=== PATIENT | female | born 1985 | race Caucasian/White ===

== ENCOUNTER 2016-03-04 09:46 | Emergency (ER) | payer OTHER ==
[~2016-03-04 09:46] MED LIST: /MOXI40TA OR; ACET65TA OR; ALBUTEROL INH; BUPR150T3 PO; CLAR10CA3 PO; CLIN1CAP5 PO; NARCO PO; OMEP20TA7 OR; PRED50TA OR; RANI15TA PO; SLOWTAB OR; SUCR1TA PO
[2016-03-04] MEDS ORDERED: ONDANSETRON 4MG/2ML VIAL (J2405) As Ordered ONE (10:33)
[2016-03-04 10:47] LABS: MEAN CORPUSCULAR HEMOGLOBIN 32.3 pg (27.0-33.0); MEAN CORPUSCULAR HGB CONC 35.1 g/dl (32.0-36.5); WHITE BLOOD COUNT 9.8 K/mm3 (4.0-10.0)
[2016-03-04 12:13] LABS: ALBUMIN 3.9 GM/DL (3.2-5.2); ALBUMIN/GLOBULIN RATIO 1.34 (1.00-1.93); ALKALINE PHOSPHATASE 63 U/L (45-117); ALT/SGPT 14 U/L (12-78); ANION GAP 10 MEQ/L (8-16); AST/SGOT 9 U/L (15-37); BILIRUBIN,DIRECT 0.2 MG/DL (0.0-0.2); BILIRUBIN,TOTAL 0.6 MG/DL (0.2-1.0); BLOOD UREA NITROGEN 6 MG/DL (7-18); CALCIUM LEVEL 8.9 MG/DL (8.5-10.1); CARBON DIOXIDE LEVEL 24 MEQ/L (21-32); CHLORIDE LEVEL 109 MEQ/L (98-107); CREATININE FOR GFR 0.66 MG/DL (0.55-1.02); GLOMERULAR FILTRATION RATE > 60.0 (>60); GLUCOSE, FASTING 82 MG/DL (70-105); HCG, SERUM QUANTITATIVE 18240 MIU/ML; POTASSIUM SERUM 3.9 MEQ/L (3.5-5.1); SODIUM LEVEL 143 MEQ/L (136-145); TOTAL PROTEIN 6.8 GM/DL (6.4-8.2)
--- NOTE | 2016-03-04 12:46 | EDDOCDS ---
Nurse's Notes [facility] Name: Samra Sadler Age: 30 yrs Sex: Female : 1985 Arrival Date: 03/04/2016 Time: 09:46 Bed TR3 Private MD: Cyn Medina. Diagnosis: related conditions, unspecified;Vomiting of , unspecified Presentation: 03/04 09:50 Presenting complaint: Patient states: pt c/o n/v/d, onset yesterday morning. states "I ead can't keep anything down.". also reports she is , unsure how far along. reports LMP "last week of December." first OB is for 03/13/16. Presenting complaint: Presenting complaint:. Adult Sepsis Screening: The patient does not have new or worsening altered mentation. Patient's respiratory rate is less than 22. Systolic blood pressure is greater than 100. Patient has a qSOFA score of 0- Negative Sepsis Screen. 09:50 Acuity: JEROMY Level 3 ead 09:50 Suicide/Homicide risk assessment- the patient denies having any suicidal and/or ead homicidal ideations and does not present with any other emotional, behavioral or mental health complaints. Status: Patient is not a equipment service technician or dependent. Transition of care: patient was not received from another setting of care. 09:50 Method Of Arrival: Walkin/Carried/Asstd ead Triage Assessment: 09:52 General: Appears in no apparent distress, Behavior is appropriate for age, cooperative. ead Pain: Denies pain. HIV screening NA for this visit Offered previously. GI: Reports diarrhea, nausea, vomiting. : Denies vaginal bleeding. Derm: Skin is pink, warm & dry. 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 none - PMHx: Asthma; MRSA; - PSHx: Cholecystectomy; - Social history: No barriers to communication noted, The patient speaks fluent Armenian, Speaks appropriately for age, Smoking status: Patient uses tobacco products, current every day smoker. - Family history: Not pertinent. - : The pt / caregiver states he / she is not on anticoagulants. Home medication list is obtained from the patient. - Exposure Risk Screening:: None identified. Screenin:26 Screening information is obtained from the patient. Fall risk: No risks identified. k Assistance ADL's: requires no assistance with activities of daily living. Abuse/DV Screen: The patient / caregiver reports he/she is: not in a situation that causes fear, pain or injury. Nutritional screening: No deficits noted. Advance Directives: Currently, there is no health care proxy. There is no active DNR order. There is no living will. There is no Power of Co Pilot. Advance directive information has not previously been placed in an [facility] medical record. home support is adequate. Assessment: 11:07 General: Appears in no apparent distress. GI: Abdomen is flat, non- distended Bowel jmk sounds present X 4 quads. Abd is soft and non tender Reports nausea. 11:26 General: states nausea has lessened. No vomiting since arrival.. GI: Reports. k 12:44 General: Appears po taken and retained. no vomiting since arrrival. [facility] Vital Signs: 09:48 BP 116 / 68; Pulse 69; Resp 18 S; Temp 98.2(O); Pulse Ox 100% on R/A; Weight 70.31 kg gr2 (R); Height 5 ft. 1 in. (154.94 cm) (R); Pain 4/10; 12:24 BP 107 / 58; Pulse 68; Resp 18; Temp 97.0(O); Pulse Ox 97% on R/A; Pain 0/10; dem1 09:48 Body Mass Index 29.29 (70.31 kg, 154.94 cm) 2 Vitals: 09:48 Log In Time: March 04, 2016 at 09:48. gr2 ED Course: 09:48 Patient visited by Abby Ospina. gr2 09:48 Cyn Medina. is Private Physician. gr2 09:48 Patient moved to Waiting gr2 09:49 Patient visited by Abby Ospina. gr2 09:49 Patient moved to Pre RCE gr2 09:52 Triage Initiated ead 10:19 Patient moved to Triage 2 ead 10:20 [facility] ke 10:20 Patient visited by Peng Bunn FNP. ke 10:20 Patient visited by Peng Bunn FNP. ke 10:31 Susan Medina, RN is Primary Nurse. ead 10:31 Patient moved to I4 / ead 10:42 Liver Profile Sent. jmk 10:42 Lipase Sent. jmk 10:43 Type & Screen Sent. jmk 10:43 BMP Sent. jmk 10:43 CBC Sent. jmk 10:43 Hcg, Serum Quantitative Sent. jmk 10:50 [facility] Payment Agreement was scanned into [email or web address] and attached to record. lg 10:51 Patient visited by Peng Bunn FNP. ke 11:09 Inserted saline lock: 20 gauge in left. jmk 11:23 Patient visited by Peng Bunn FNP. ke 11:26 The patient / caregiver is instructed regarding the plan of care and ED course. jmk 12:04 Patient visited by Peng Bunn FNP. ke 12:19 Aura Platt CNM is Referral Physician. ke 12:24 Patient visited by Viji Rizzo. dem1 12:35 Patient moved to [facility] rs6 12:43 Discontinued lock intact, bleeding controlled, pressure dressing applied, No jmk redness/swelling at site. No procedures done that require assistance. Administered Medications: 10:43 Drug: NS 0.9% 1000 ml Route: IV; Rate: bolus; Site: left antecubital; jmk 10:43 Drug: Ondansetron 4 mg [ondansetron HCl 2 mg/mL intravenous solution (2 mL)] Route: dls IVP; Site: left antecubital; Order Results: Lab Order: Hcg, Serum Quantitative; SPEC'M 03/04/16 11:25 Test: HCG, SERUM QUANTITATIVE; Value: 22030; Units: MIU/ML; Status: F Test Note: ; GESTATIONAL AGE APPROXIMATE HCG RANGE (MIU/ML) 0.2-1 WEEK 5-50 1-2 WEEKS 50-500 2-3 WEEKS 100-5,000 3-4 WEEKS 500-10,000 4-5 WEEKS 1,000-50,000 5-6 WEEKS 10,000-100,000 6-8 WEEKS 15,000-200,000 2-3 MONTHS 10,000-100,000 NON FEMALES LESS THAN 3.0 Patient samples may contain human heterophilic antibodies that could react with immunoassays to give falsely elevated or depressed results. This assay has been designed to minimize interference from heterophilic antibodies. Elevated hCG levels have also been associated with trophoblastic disease and nontrophoblastic neoplasms. The possibility of having these diseases should be considered before a diagnosis of is made. This test is not intended for use as a surrogate marker for aiding in the diagnosis or monitoring the treatment of cancer patients. Siem[employer] methodology. Lab Order: CBC; SPEC'M 03/04/16 10:38 Test: WHITE BLOOD COUNT; Value: 9.8; Range: 4.0-10.0; Units: K/mm3; Status: F Test: RED BLOOD COUNT; Value: 5.03; Range: 4.00-5.40; Units: M/mm3; Status: F Test: HEMOGLOBIN; Value: 16.3; Range: 12.0-16.0; Abnormal: Above high normal; Units: g/dl; Status: F Test: HEMATOCRIT; Value: 46.3; Range: 36.0-47.0; Units: %; Status: F Test: MEAN CORPUSCULAR VOLUME; Value: 92.0; Range: 80.0-96.0; Units: fl; Status: F Test: MEAN CORPUSCULAR HEMOGLOBIN; Value: 32.3; Range: 27.0-33.0; Units: pg; Status: F Test: MEAN CORPUSCULAR HGB CONC; Value: 35.1; Range: 32.0-36.5; Units: g/dl; Status: F Test: RED CELL DISTRIBUTION WIDTH; Value: 12.0; Range: 11.5-14.5; Units: %; Status: F Test: PLATELET COUNT, AUTOMATED; Value: 241; Range: 150-450; Units: k/mm3; Status: F Lab Order: BMP; SPEC'M 03/04/16 11:25 Test: GLUCOSE, FASTING; Value: 82; Range: 70-105; Units: MG/DL; Status: F Test: BLOOD UREA NITROGEN; Value: 6; Range: 7-18; Abnormal: Below low normal; Units: MG/DL; Status: F Test: CREATININE FOR GFR; Value: 0.66; Range: 0.55-1.02; Units: MG/DL; Status: F Test: GLOMERULAR FILTRATION RATE; Value: > 60.0; Range: >60; Status: F Test: SODIUM LEVEL; Value: 143; Range: 136-145; Units: MEQ/L; Status: F Test: POTASSIUM SERUM; Value: 3.9; Range: 3.5-5.1; Units: MEQ/L; Status: F Test: CHLORIDE LEVEL; Value: 109; Range: 98-107; Abnormal: Above high normal; Units: MEQ/L; Status: F Test: CARBON DIOXIDE LEVEL; Value: 24; Range: 21-32; Units: MEQ/L; Status: F Test: ANION GAP; Value: 10; Range: 8-16; Units: MEQ/L; Status: F Test: CALCIUM LEVEL; Value: 8.9; Range: 8.5-10.1; Units: MG/DL; Status: F Test Note: ; Units are mL/min/1.73 m2 Chronic Kidney Disease Staging per NKF: Stage I & II GFR >=60 Normal to Mildly Decreased Stage III GFR 30-59 Moderately Decreased Stage IV GFR 15-29 Severely Decreased Stage V GFR <15 Very Little GFR Left ESRD GFR <15 on PRIMER INSPECTOR Lab Order: Type & Screen; SPEC' 03/04/16 11:25 Test: BLOOD TYPE; Value: O NEG; Status: F Test: AB SCREEN (INDIRECT NATALY)GEL; Value: NEGATIVE; Status: F Lab Order: Lipase; SPEC' 03/04/16 11:25 Test: LIPASE; Value: 125; Range: 73-393; Units: U/L; Status: F Lab Order: Liver Profile; SPEC' 03/04/16 11:25 Test: AST/SGOT; Value: 9; Range: 15-37; Abnormal: Below low normal; Units: U/L; Status: F Test: ALT/SGPT; Value: 14; Range: 12-78; Units: U/L; Status: F Test: ALKALINE PHOSPHATASE; Value: 63; Range: 45-117; Units: U/L; Status: F Test: BILIRUBIN,TOTAL; Value: 0.6; Range: 0.2-1.0; Units: MG/DL; Status: F Test: BILIRUBIN,DIRECT; Value: 0.2; Range: 0.0-0.2; Units: MG/DL; Status: F Test: TOTAL PROTEIN; Value: 6.8; Range: 6.4-8.2; Units: GM/DL; Status: F Test: ALBUMIN; Value: 3.9; Range: 3.2-5.2; Units: GM/DL; Status: F Test: ALBUMIN/GLOBULIN RATIO; Value: 1.34; Range: 1.00-1.93; Status: F Outcome: 12:19 Discharge ordered by Provider. 12:43 Discharge Assessment: Patient awake, alert and oriented x 3. No cognitive and/or k functional deficits noted. Patient verbalized understanding of disposition instructions. patient administered narcotics - no. The following High Risk Discharge criteria are identified: None. Discharged to home ambulatory. Condition: good. Discharge instructions given to patient, Instructed on discharge instructions, follow up and referral plans. medication usage, Demonstrated understanding of instructions, medications, Pt was receptive of discharge instructions/ teaching. Prescriptions given X 1. No special radiology studies were completed. Property :Personal belongings accompany Pt. 12:44 Patient left the ED. maritza Signatures: Dwight Sher,RN RN Susan Craven, RN RN Glendy Fitzgerald, Migel Reg lg Peng Bunn, PESTICIDE APPLICATOR PESTICIDE APPLICATOR Viji Monzon1 Abby Ospina2 Sue Salazar,ERVIN RN Sona Barton, CRISTINA PEARL DIVER rs6 SAVANNAH
--- NOTE | 2016-03-04 12:46 | EDDOCDS ---
Physician Documentation [facility] Name: Samra Sadler Age: 30 yrs Sex: Female : 1985 Arrival Date: 03/04/2016 Time: 09:46 Bed TR3 Private MD: Cyn Medina. Disposition: 03/04/16 12:19 Discharged to Home/Self Care. Impression: related conditions, unspecified, Vomiting of , unspecified. - Condition is Stable. - Discharge Instructions: Hyperemesis Gravidarum. - Prescriptions for ZOFRAN ODT 4 mg - dissolve 1 tablet by ORAL route 4 times per day As needed do not chew, do not swallow whole; 10 tablet. - Medication Reconciliation, Local Pharmacy Hours form. - Follow up: Aura Platt CNM; When: 1 week; Reason: Recheck today's complaints, Continuance of care. - Problem is an ongoing problem. - Symptoms are unchanged. Historical: - Allergies: SULFA (SULFONAMIDES); - Home Meds: 1. none - PMHx: Asthma; MRSA; - PSHx: Cholecystectomy; - Social history: No barriers to communication noted, The patient speaks fluent Guatemalan, Speaks appropriately for age, Smoking status: Patient uses tobacco products, current every day smoker. - Family history: Not pertinent. - : The pt / caregiver states he / she is not on anticoagulants. Home medication list is obtained from the patient. - Exposure Risk Screening:: None identified. EDITOR TR[employer] JOURNAL: 03/04 09:52 LMP 12/2015, "end of the month." ead Vital Signs: 09:48 BP 116 / 68; Pulse 69; Resp 18 S; Temp 98.2(O); Pulse Ox 100% on R/A; Weight 70.31 kg / gr2 155.01 lbs (R); Height 5 ft. 1 in. (154.94 cm) (R); Pain 4/10; 12:24 BP 107 / 58; Pulse 68; Resp 18; Temp 97.0(O); Pulse Ox 97% on R/A; Pain 0/10; dem1 09:48 Body Mass Index 29.29 (70.31 kg, 154.94 cm) gr2 MDM: 10:29 IV Saline Lock ordered. ke 10:29 NS 0.9% 1000 ml IV at bolus once ordered. ke 10:29 Ondansetron 4 mg IVP once ordered. ke 10:31 Hcg, Serum Quantitative Ordered. EDMS 10:31 CBC Ordered. EDMS 10:31 BMP Ordered. EDMS 10:31 Type & Screen Ordered. EDMS 10:31 Lipase Ordered. EDMS 10:31 Liver Profile Ordered. EDMS 10:33 Financial registration complete. lg 10:50 [facility] Payment Agreement was scanned into [employer] and attached to record. lg 12:15 CBC Reviewed. ke 12:15 BMP Reviewed. ke 12:15 Liver Profile Reviewed. ke 12:15 Hcg, Serum Quantitative Reviewed. ke 12:15 Type & Screen Reviewed. ke 12:15 Lipase Reviewed. ke Administered Medications: 10:43 Drug: NS 0.9% 1000 ml Route: IV; Rate: bolus; Site: left antecubital; jmk 10:43 Drug: Ondansetron 4 mg [ondansetron HCl 2 mg/mL intravenous solution (2 mL)] Route: dls IVP; Site: left antecubital; Signatures: Dispatcher [employer] EDNC Dwight Sher,RN RN Glendy Spangler, Reg Reg lg Peng Bunn, TRAIN BRAKE OPERATOR TRAIN BRAKE OPERATOR Sue Mckeon RN RN Susan Silva RN The chart was reviewed and I authenticate all verbal orders and agree with the evaluation and treatment provided.Attachments: 10:50 [facility] Payment Agreement lg MTDD
--- NOTE | 2016-03-06 13:46 | EDDOCDS ---
Physician Documentation [facility] Name: Samra Sadler Age: 30 yrs Sex: Female : 1985 Arrival Date: 03/04/2016 Time: 09:46 Bed TR3 Private MD: Cyn Medina. Disposition: 03/04/16 12:19 Discharged to Home/Self Care. Impression: related conditions, unspecified, Vomiting of , unspecified. - Condition is Stable. - Discharge Instructions: Hyperemesis Gravidarum. - Prescriptions for ZOFRAN ODT 4 mg - dissolve 1 tablet by ORAL route 4 times per day As needed do not chew, do not swallow whole; 10 tablet. - Medication Reconciliation, Local Pharmacy Hours form. - Follow up: Aura Platt CNM; When: 1 week; Reason: Recheck today's complaints, Continuance of care. - Problem is an ongoing problem. - Symptoms are unchanged. Historical: - Allergies: SULFA (SULFONAMIDES); - Home Meds: 1. none - PMHx: Asthma; MRSA; - PSHx: Cholecystectomy; - Social history: No barriers to communication noted, The patient speaks fluent Norwegian, Speaks appropriately for age, Smoking status: Patient uses tobacco products, current every day smoker. - Family history: Not pertinent. - : The pt / caregiver states he / she is not on anticoagulants. Home medication list is obtained from the patient. - Exposure Risk Screening:: None identified. BUREAU CHIEF: 03/04 09:52 LMP 12/2015, "end of the month." ead Vital Signs: 09:48 BP 116 / 68; Pulse 69; Resp 18 S; Temp 98.2(O); Pulse Ox 100% on R/A; Weight 70.31 kg / gr2 155.01 lbs (R); Height 5 ft. 1 in. (154.94 cm) (R); Pain 4/10; 12:24 BP 107 / 58; Pulse 68; Resp 18; Temp 97.0(O); Pulse Ox 97% on R/A; Pain 0/10; dem1 09:48 Body Mass Index 29.29 (70.31 kg, 154.94 cm) gr2 MDM: 10:29 IV Saline Lock ordered. ke 10:29 NS 0.9% 1000 ml IV at bolus once ordered. ke 10:29 Ondansetron 4 mg IVP once ordered. ke 10:31 Hcg, Serum Quantitative Ordered. EDMS 10:31 CBC Ordered. EDMS 10:31 BMP Ordered. EDMS 10:31 Type & Screen Ordered. EDMS 10:31 Lipase Ordered. EDMS 10:31 Liver Profile Ordered. EDMS 10:33 Financial registration complete. lg 10:50 [facility] Payment Agreement was scanned into [employer] and attached to record. lg 12:15 CBC Reviewed. ke 12:15 BMP Reviewed. ke 12:15 Liver Profile Reviewed. ke 12:15 Hcg, Serum Quantitative Reviewed. ke 12:15 Type & Screen Reviewed. ke 12:15 Lipase Reviewed. ke 03/05 02:26 T-Sheet-- Draft Copy was scanned into [employer] and attached to record. hs2 Administered Medications: 03/04 10:43 Drug: NS 0.9% 1000 ml Route: IV; Rate: bolus; Site: left antecubital; [facility] 10:43 Drug: Ondansetron 4 mg [ondansetron HCl 2 mg/mL intravenous solution (2 mL)] Route: dls IVP; Site: left antecubital; Signatures: Dispatcher [employer] EDDwight Spears,RN RN Glendy Spangler, Reg Reg lg Peng Bunn, AP OPERATOR AP OPERATOR Sue Mckeon RN RN ead Stanton, Hillary, Reg Reg hs2 Susan Medina RN The chart was reviewed and I authenticate all verbal orders and agree with the evaluation and treatment provided.Attachments: 10:50 [facility] Payment Agreement 03/05 02:26 T-Sheet-- Draft Copy hs2 Chart Complete MTDD
--- NOTE | 2016-03-06 13:46 | EDDOCDS ---
Nurse's Notes [facility] Name: Samra Sadler Age: 30 yrs Sex: Female : 1985 Arrival Date: 03/04/2016 Time: 09:46 Bed TR3 Private MD: Cyn Medina. Diagnosis: related conditions, unspecified;Vomiting of , unspecified Presentation: 03/04 09:50 Presenting complaint: Patient states: pt c/o n/v/d, onset yesterday morning. states "I ead can't keep anything down.". also reports she is , unsure how far along. reports LMP "last week of December." first OB is for 03/13/16. Presenting complaint: Presenting complaint:. Adult Sepsis Screening: The patient does not have new or worsening altered mentation. Patient's respiratory rate is less than 22. Systolic blood pressure is greater than 100. Patient has a qSOFA score of 0- Negative Sepsis Screen. 09:50 Acuity: JEROMY Level 3 ead 09:50 Suicide/Homicide risk assessment- the patient denies having any suicidal and/or ead homicidal ideations and does not present with any other emotional, behavioral or mental health complaints. Status: Patient is not a employment services director or dependent. Transition of care: patient was not received from another setting of care. 09:50 Method Of Arrival: Walkin/Carried/Asstd ead Triage Assessment: 09:52 General: Appears in no apparent distress, Behavior is appropriate for age, cooperative. ead Pain: Denies pain. HIV screening NA for this visit Offered previously. GI: Reports diarrhea, nausea, vomiting. : Denies vaginal bleeding. Derm: Skin is pink, warm & dry. 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 none - PMHx: Asthma; MRSA; - PSHx: Cholecystectomy; - Social history: No barriers to communication noted, The patient speaks fluent Turkish, Speaks appropriately for age, Smoking status: Patient uses tobacco products, current every day smoker. - Family history: Not pertinent. - : The pt / caregiver states he / she is not on anticoagulants. Home medication list is obtained from the patient. - Exposure Risk Screening:: None identified. Screenin:26 Screening information is obtained from the patient. Fall risk: No risks identified. k Assistance ADL's: requires no assistance with activities of daily living. Abuse/DV Screen: The patient / caregiver reports he/she is: not in a situation that causes fear, pain or injury. Nutritional screening: No deficits noted. Advance Directives: Currently, there is no health care proxy. There is no active DNR order. There is no living will. There is no Power of University Tutor. Advance directive information has not previously been placed in an [facility] medical record. home support is adequate. Assessment: 11:07 General: Appears in no apparent distress. GI: Abdomen is flat, non- distended Bowel jmk sounds present X 4 quads. Abd is soft and non tender Reports nausea. 11:26 General: states nausea has lessened. No vomiting since arrival.. GI: Reports. k 12:44 General: Appears po taken and retained. no vomiting since arrrival. [facility] Vital Signs: 09:48 BP 116 / 68; Pulse 69; Resp 18 S; Temp 98.2(O); Pulse Ox 100% on R/A; Weight 70.31 kg gr2 (R); Height 5 ft. 1 in. (154.94 cm) (R); Pain 4/10; 12:24 BP 107 / 58; Pulse 68; Resp 18; Temp 97.0(O); Pulse Ox 97% on R/A; Pain 0/10; dem1 09:48 Body Mass Index 29.29 (70.31 kg, 154.94 cm) 2 Vitals: 09:48 Log In Time: March 04, 2016 at 09:48. gr2 ED Course: 09:48 Patient visited by Abby Ospina. gr2 09:48 Cyn Medina. is Private Physician. gr2 09:48 Patient moved to Waiting gr2 09:49 Patient visited by Abby Ospina. gr2 09:49 Patient moved to Pre RCE gr2 09:52 Triage Initiated ead 10:19 Patient moved to Triage 2 ead 10:20 [facility]. ke 10:20 Patient visited by Peng Bunn FNP. ke 10:20 Patient visited by Peng Bunn FNP. ke 10:31 Susan Medina, RN is Primary Nurse. ead 10:31 Patient moved to I4 / ead 10:42 Liver Profile Sent. jmk 10:42 Lipase Sent. jmk 10:43 Type & Screen Sent. jmk 10:43 BMP Sent. jmk 10:43 CBC Sent. jmk 10:43 Hcg, Serum Quantitative Sent. jmk 10:50 [facility] Payment Agreement was scanned into [employer] and attached to record. lg 10:51 Patient visited by Peng Bunn FNP. ke 11:09 Inserted saline lock: 20 gauge in left. jmk 11:23 Patient visited by Peng Bunn FNP. ke 11:26 The patient / caregiver is instructed regarding the plan of care and ED course. jmk 12:04 Patient visited by Peng Bunn FNP. ke 12:19 Aura Platt CNM is Referral Physician. ke 12:24 Patient visited by Viji Rizzo. dem1 12:35 Patient moved to [facility] rs6 12:43 Discontinued lock intact, bleeding controlled, pressure dressing applied, No jmk redness/swelling at site. No procedures done that require assistance. 03/05 02:26 T-Sheet-- Draft Copy was scanned into [employer] and attached to record. hs2 Administered Medications: 03/04 10:43 Drug: NS 0.9% 1000 ml Route: IV; Rate: bolus; Site: left antecubital; k 10:43 Drug: Ondansetron 4 mg [ondansetron HCl 2 mg/mL intravenous solution (2 mL)] Route: dls IVP; Site: left antecubital; Order Results: Lab Order: Hcg, Serum Quantitative; SPEC'M 03/04/16 11:25 Test: HCG, SERUM QUANTITATIVE; Value: 07310; Units: MIU/ML; Status: F Test Note: ; GESTATIONAL AGE APPROXIMATE HCG RANGE (MIU/ML) 0.2-1 WEEK 5-50 1-2 WEEKS 50-500 2-3 WEEKS 100-5,000 3-4 WEEKS 500-10,000 4-5 WEEKS 1,000-50,000 5-6 WEEKS 10,000-100,000 6-8 WEEKS 15,000-200,000 2-3 MONTHS 10,000-100,000 NON FEMALES LESS THAN 3.0 Patient samples may contain human heterophilic antibodies that could react with immunoassays to give falsely elevated or depressed results. This assay has been designed to minimize interference from heterophilic antibodies. Elevated hCG levels have also been associated with trophoblastic disease and nontrophoblastic neoplasms. The possibility of having these diseases should be considered before a diagnosis of is made. This test is not intended for use as a surrogate marker for aiding in the diagnosis or monitoring the treatment of cancer patients. Siemens Cryptonator methodology. Lab Order: CBC; SPEC'M 03/04/16 10:38 Test: WHITE BLOOD COUNT; Value: 9.8; Range: 4.0-10.0; Units: K/mm3; Status: F Test: RED BLOOD COUNT; Value: 5.03; Range: 4.00-5.40; Units: M/mm3; Status: F Test: HEMOGLOBIN; Value: 16.3; Range: 12.0-16.0; Abnormal: Above high normal; Units: g/dl; Status: F Test: HEMATOCRIT; Value: 46.3; Range: 36.0-47.0; Units: %; Status: F Test: MEAN CORPUSCULAR VOLUME; Value: 92.0; Range: 80.0-96.0; Units: fl; Status: F Test: MEAN CORPUSCULAR HEMOGLOBIN; Value: 32.3; Range: 27.0-33.0; Units: pg; Status: F Test: MEAN CORPUSCULAR HGB CONC; Value: 35.1; Range: 32.0-36.5; Units: g/dl; Status: F Test: RED CELL DISTRIBUTION WIDTH; Value: 12.0; Range: 11.5-14.5; Units: %; Status: F Test: PLATELET COUNT, AUTOMATED; Value: 241; Range: 150-450; Units: k/mm3; Status: F Lab Order: BMP; SPEC'M 03/04/16 11:25 Test: GLUCOSE, FASTING; Value: 82; Range: 70-105; Units: MG/DL; Status: F Test: BLOOD UREA NITROGEN; Value: 6; Range: 7-18; Abnormal: Below low normal; Units: MG/DL; Status: F Test: CREATININE FOR GFR; Value: 0.66; Range: 0.55-1.02; Units: MG/DL; Status: F Test: GLOMERULAR FILTRATION RATE; Value: > 60.0; Range: >60; Status: F Test: SODIUM LEVEL; Value: 143; Range: 136-145; Units: MEQ/L; Status: F Test: POTASSIUM SERUM; Value: 3.9; Range: 3.5-5.1; Units: MEQ/L; Status: F Test: CHLORIDE LEVEL; Value: 109; Range: 98-107; Abnormal: Above high normal; Units: MEQ/L; Status: F Test: CARBON DIOXIDE LEVEL; Value: 24; Range: 21-32; Units: MEQ/L; Status: F Test: ANION GAP; Value: 10; Range: 8-16; Units: MEQ/L; Status: F Test: CALCIUM LEVEL; Value: 8.9; Range: 8.5-10.1; Units: MG/DL; Status: F Test Note: ; Units are mL/min/1.73 m2 Chronic Kidney Disease Staging per NKF: Stage I & II GFR >=60 Normal to Mildly Decreased Stage III GFR 30-59 Moderately Decreased Stage IV GFR 15-29 Severely Decreased Stage V GFR <15 Very Little GFR Left ESRD GFR <15 on [employer] Lab Order: Type & Screen; [facility]03/04/16 11:25 Test: BLOOD TYPE; Value: O NEG; Status: F Test: AB SCREEN (INDIRECT NATALY)GEL; Value: NEGATIVE; Status: F Lab Order: Lipase; [facility]03/04/16 11:25 Test: LIPASE; Value: 125; Range: 73-393; Units: U/L; Status: F Lab Order: Liver Profile; [facility]03/04/16 11:25 Test: AST/SGOT; Value: 9; Range: 15-37; Abnormal: Below low normal; Units: U/L; Status: F Test: ALT/SGPT; Value: 14; Range: 12-78; Units: U/L; Status: F Test: ALKALINE PHOSPHATASE; Value: 63; Range: 45-117; Units: U/L; Status: F Test: BILIRUBIN,TOTAL; Value: 0.6; Range: 0.2-1.0; Units: MG/DL; Status: F Test: BILIRUBIN,DIRECT; Value: 0.2; Range: 0.0-0.2; Units: MG/DL; Status: F Test: TOTAL PROTEIN; Value: 6.8; Range: 6.4-8.2; Units: GM/DL; Status: F Test: ALBUMIN; Value: 3.9; Range: 3.2-5.2; Units: GM/DL; Status: F Test: ALBUMIN/GLOBULIN RATIO; Value: 1.34; Range: 1.00-1.93; Status: F Outcome: 12:19 Discharge ordered by Provider. marta 12:43 Discharge Assessment: Patient awake, alert and oriented x 3. No cognitive and/or k functional deficits noted. Patient verbalized understanding of disposition instructions. patient administered narcotics - no. The following High Risk Discharge criteria are identified: None. Discharged to home ambulatory. Condition: good. Discharge instructions given to patient, Instructed on discharge instructions, follow up and referral plans. medication usage, Demonstrated understanding of instructions, medications, Pt was receptive of discharge instructions/ teaching. Prescriptions given X 1. No special radiology studies were completed. Property :Personal belongings accompany Pt. 12:44 Patient left the ED. [facility] Signatures: Dwight Sher,RN RN Susan Craven RN Glendy Martino, Reg Reg lg Peng Bunn, Viji Valdes1 Abby Ospina2 Sue Salazar,RN RN Sona Barton, DEPUTY CONTROLLER DEPUTY CONTROLLER rs6 Dana Pena, Reg Reg hs2 Chart Complete MTDD
--- NOTE | 2016-03-06 13:46 | EDDOCDS ---
Physician Documentation [facility] Name: Samra Sadler Age: 30 yrs Sex: Female : 1985 Arrival Date: 03/04/2016 Time: 09:46 Bed TR3 Private MD: Cyn Medina. Disposition: 03/04/16 12:19 Discharged to Home/Self Care. Impression: related conditions, unspecified, Vomiting of , unspecified. - Condition is Stable. - Discharge Instructions: Hyperemesis Gravidarum. - Prescriptions for ZOFRAN ODT 4 mg - dissolve 1 tablet by ORAL route 4 times per day As needed do not chew, do not swallow whole; 10 tablet. - Medication Reconciliation, Local Pharmacy Hours form. - Follow up: Aura Platt CNM; When: 1 week; Reason: Recheck today's complaints, Continuance of care. - Problem is an ongoing problem. - Symptoms are unchanged. Historical: - Allergies: SULFA (SULFONAMIDES); - Home Meds: 1. none - PMHx: Asthma; MRSA; - PSHx: Cholecystectomy; - Social history: No barriers to communication noted, The patient speaks fluent Yemeni, Speaks appropriately for age, Smoking status: Patient uses tobacco products, current every day smoker. - Family history: Not pertinent. - : The pt / caregiver states he / she is not on anticoagulants. Home medication list is obtained from the patient. - Exposure Risk Screening:: None identified. 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 1 in. (154.94 cm) (R); Pain 4/10; 12:24 BP 107 / 58; Pulse 68; Resp 18; Temp 97.0(O); Pulse Ox 97% on R/A; Pain 0/10; dem1 09:48 Body Mass Index 29.29 (70.31 kg, 154.94 cm) gr2 MDM: 10:29 IV Saline Lock ordered. ke 10:29 NS 0.9% 1000 ml IV at bolus once ordered. ke 10:29 Ondansetron 4 mg IVP once ordered. ke 10:31 Hcg, Serum Quantitative Ordered. EDMS 10:31 CBC Ordered. EDMS 10:31 BMP Ordered. EDMS 10:31 Type & Screen Ordered. EDMS 10:31 Lipase Ordered. EDMS 10:31 Liver Profile Ordered. EDMS 10:33 Financial registration complete. lg 10:50 [facility] Payment Agreement was scanned into [employer] and attached to record. lg 12:15 CBC Reviewed. ke 12:15 BMP Reviewed. ke 12:15 Liver Profile Reviewed. ke 12:15 Hcg, Serum Quantitative Reviewed. ke 12:15 Type & Screen Reviewed. ke 12:15 Lipase Reviewed. ke 03/05 02:26 T-Sheet-- Draft Copy was scanned into [employer] and attached to record. hs2 Administered Medications: 03/04 10:43 Drug: NS 0.9% 1000 ml Route: IV; Rate: bolus; Site: left antecubital; [facility] 10:43 Drug: Ondansetron 4 mg [ondansetron HCl 2 mg/mL intravenous solution (2 mL)] Route: dls IVP; Site: left antecubital; Signatures: Dispatcher [employer] EDDwight Spears,RN RN Glendy Spangler, Reg Reg lg Peng Bunn, CLOTH WINDER CLOTH WINDER Sue Mckeon RN RN ead Stanton, Hillary, Reg Reg hs2 Susan Medina RN The chart was reviewed and I authenticate all verbal orders and agree with the evaluation and treatment provided.Attachments: 10:50 [facility] Payment Agreement 03/05 02:26 T-Sheet-- Draft Copy hs2 Chart Complete MTDD
== END 2016-03-04 12:44 | disposition home or self-care (01) ==
LOC: M ED 09:46
DX: O21.9 Vomiting of pregnancy, unspecified (principal); O99.511 Diseases of the respiratory system complicating pregnancy, first trimester; J45.909 Unspecified asthma, uncomplicated; O99.331 Smoking (tobacco) complicating pregnancy, first trimester; Z86.14 Personal history of Methicillin resistant Staphylococcus aureus infection; Z88.2 Allergy status to sulfonamides; Z3A.01 Less than 8 weeks gestation of pregnancy
CPT/HCPCS: 36415; 80048; 80076; 83690; 84702; 85027; 86850; 86900; 86901; 96374; 99284; J2405

== ENCOUNTER → 2016-03-13 | Outpatient (CLI) | payer OTHER ==
[2016-03-13 19:34] LABS: BASO % 0.2 % (0.0-1.0); EOS % 0.5 % (0.0-3.0); LARGE UNSTAINED CELL # 0.1 K/mm3 (0.0-0.4); LARGE UNSTAINED CELL % 1.6 % (0.0-4.0); LYMPH # 2.1 K/mm3 (1.5-6.5); LYMPH % 23.6 % (24.0-44.0); MEAN CORPUSCULAR HEMOGLOBIN 33.3 pg (27.0-33.0); MEAN CORPUSCULAR HGB CONC 36.3 g/dl (32.0-36.5); MEAN CORPUSCULAR VOLUME 91.7 fl (80.0-96.0); MONO # 0.4 K/mm3 (0.0-0.8); MONO % 4.1 % (0.0-5.0); NEUTROPHILS # 6.1 K/mm3 (1.8-7.7); PLATELET COUNT, AUTOMATED 202 k/mm3 (150-450); WHITE BLOOD COUNT 8.7 K/mm3 (4.0-10.0)
[2016-03-14 15:23] LABS: CONTROL LINE INT CTR LINE PRESENT; HIV SCRN NEGATIVE (NEGATIVE); HIV SCRN1 NEGATIVE (NEGATIVE)
[2016-03-15 10:52] LABS: HBsAg Prenatal NEGATIVE (NEGATIVE)
== END ==
LOC: M SMT 13:27
PROVIDERS: ATTEND Advanced Practice Midwife
DX: Z34.81 Encounter for supervision of other normal pregnancy, first trimester (principal)

== ENCOUNTER → 2016-03-27 | Outpatient (REF) | payer OTHER | LOC: M LAB REF 16:51 | PROVIDERS: ATTEND Advanced Practice Midwife | DX: Z34.81 Encounter for supervision of other normal pregnancy, first trimester (principal) ==

== ENCOUNTER → 2016-04-25 | Outpatient (REF) | payer OTHER | LOC: M LAB REF 12:45 | PROVIDERS: ATTEND Specialist | DX: Z34.81 Encounter for supervision of other normal pregnancy, first trimester (principal) ==

== ENCOUNTER → 2016-05-23 | Outpatient (REF) | payer OTHER | LOC: M LAB REF 17:01 | PROVIDERS: ATTEND Obstetrics & Gynecology | DX: Z34.82 Encounter for supervision of other normal pregnancy, second trimester (principal) ==

== ENCOUNTER → 2016-05-28 | Outpatient (CLI) | payer OTHER ==
--- NOTE | 2016-05-28 14:34 | REP ---
Obstetric ultrasound for anatomy: There is a single intrauterine gestation. Fetus position is variable. There is motion. heart rate was performed, however the imaged could not be seen because of machine there were. However, cardiac activity was noted throughout the entire examination. The cervix is 3.2 cm length. Gestational Age: By LMP: 18 w 6 d By Today's US: 19 w 3 d Weight: 292 gm/ 0 lbs, 10 oz Wt 67th percentile for 18 w 6 d The following anatomic structures are identified and are unremarkable: Cranium, choroid plexus, cavum, cerebellum, posterior fossa, face, facial profile, lungs, cardiac right and left ventricular outflow tracts, diaphragm, stomach, cord insertion, three-vessel cord, kidneys, bladder, spine and upper lower extremities. Four-chamber view of the heart demonstrates an echogenic focus in the left ventricle. This is most likely artifact from the chorda tendineae. Otherwise, no anomalies are identified. Signed by Amanuel King MD 05/28/2016 02:25 P
== END ==
LOC: M RAD 12:38
PROVIDERS: ATTEND Obstetrics & Gynecology
DX: Z34.82 Encounter for supervision of other normal pregnancy, second trimester (principal)

== ENCOUNTER → 2016-07-19 | Outpatient (CLI) | payer OTHER ==
[2016-07-19 13:33] LABS: MEAN CORPUSCULAR HEMOGLOBIN 33.4 pg (27.0-33.0); MEAN CORPUSCULAR HGB CONC 34.2 g/dl (32.0-36.5); MEAN CORPUSCULAR VOLUME 97.9 fl (80.0-96.0); RED CELL DISTRIBUTION WIDTH 12.3 % (11.5-14.5); WHITE BLOOD COUNT 11.3 K/mm3 (4.0-10.0)
== END ==
LOC: M SMT 10:26
PROVIDERS: ATTEND Obstetrics & Gynecology
DX: Z34.83 Encounter for supervision of other normal pregnancy, third trimester (principal)

== ENCOUNTER → 2016-08-07 | Outpatient (CLI) | payer OTHER | LOC: M LAB 08:12 | PROVIDERS: ATTEND Obstetrics & Gynecology | DX: Z34.82 Encounter for supervision of other normal pregnancy, second trimester (principal) ==

== ENCOUNTER → 2016-08-22 | Outpatient (REF) | payer OTHER ==
[~2016-08-22] MED LIST changes: +CLIN150C14 PO; -CLIN1CAP5 PO; +COLA100C5 PO; +DIBU10OI TOP; +MILKSUS PO; +MOTR200T44 PO; +PRENTAB55 PO; +TYLE325T5 PO; +ZOFR4TAB3 PO
== END ==
LOC: M LAB REF 12:58
PROVIDERS: ATTEND Advanced Practice Midwife
DX: Z34.83 Encounter for supervision of other normal pregnancy, third trimester (principal)

== ENCOUNTER 2016-08-24 20:06 | Emergency (ER) | payer OTHER ==
[~2016-08-24] VITALS: Ht 154.9 cm; Wt 74.0 kg
[~2016-08-24 20:06] MED LIST changes: -COLA100C5 PO; -DIBU10OI TOP; -MILKSUS PO; -MOTR200T44 PO; -PRENTAB55 PO; -TYLE325T5 PO; -ZOFR4TAB3 PO
[2016-08-24] MEDS ORDERED: NS 1,000 ML IV ONE (21:00)
[2016-08-24] MEDS ORDERED: ONDANSETRON 4MG/2ML VIAL (J2405) IV ONE (21:00)
[2016-08-24 21:27] LABS: BASO % 0.1 % (0.0-1.0); EOS # 0.1 K/mm3 (0.0-0.50); EOS % 0.8 % (0.0-3.0); LARGE UNSTAINED CELL % 0.3 % (0.0-4.0); LYMPH # 0.6 K/mm3 (1.5-6.5); LYMPH % 3.6 % (24.0-44.0); MEAN CORPUSCULAR HEMOGLOBIN 32.3 pg (27.0-33.0); MEAN CORPUSCULAR HGB CONC 34.2 g/dl (32.0-36.5); MEAN CORPUSCULAR VOLUME 94.4 fl (80.0-96.0); MONO # 0.2 K/mm3 (0.0-0.8); MONO % 1.4 % (0.0-5.0); NEUTROPHILS # 13.2 K/mm3 (1.8-7.7); NEUTROPHILS % 93.8 % (36.0-66.0); PLATELET COUNT, AUTOMATED 207 k/mm3 (150-450); RED CELL DISTRIBUTION WIDTH 12.8 % (11.5-14.5); WHITE BLOOD COUNT 14.1 K/mm3 (4.0-10.0)
[2016-08-24 21:44] LABS: ALBUMIN 2.9 GM/DL (3.2-5.2); ALBUMIN/GLOBULIN RATIO 0.81 (1.00-1.93); ALKALINE PHOSPHATASE 150 U/L (45-117); ALT/SGPT 24 U/L (12-78); ANION GAP 10 MEQ/L (8-16); AST/SGOT 29 U/L (15-37); BILIRUBIN,DIRECT 0.1 MG/DL (0.0-0.2); BILIRUBIN,TOTAL 0.6 MG/DL (0.2-1.0); BLOOD UREA NITROGEN 5 MG/DL (7-18); CALCIUM LEVEL 8.5 MG/DL (8.5-10.1); CARBON DIOXIDE LEVEL 21 MEQ/L (21-32); CHLORIDE LEVEL 108 MEQ/L (98-107); CREATININE FOR GFR 0.59 MG/DL (0.55-1.02); GLOMERULAR FILTRATION RATE > 60.0 (>60); GLUCOSE, FASTING 93 MG/DL (70-105); POTASSIUM SERUM 3.4 MEQ/L (3.5-5.1); SODIUM LEVEL 139 MEQ/L (136-145); TOTAL PROTEIN 6.5 GM/DL (6.4-8.2)
[2016-08-24] MEDS ORDERED: ZOFR4TAB3 PO (21:58)
[2016-08-24 22:36] VITALS: BP 126/69
== END 2016-08-24 22:37 | disposition home or self-care (01) ==
LOC: M ED 20:06
DX: O21.2 Late vomiting of pregnancy (principal); O26.893 Other specified pregnancy related conditions, third trimester; R19.7 Diarrhea, unspecified; O99.343 Other mental disorders complicating pregnancy, third trimester; F99 Mental disorder, not otherwise specified; Z3A.36 36 weeks gestation of pregnancy; Z88.2 Allergy status to sulfonamides; Z88.5 Allergy status to narcotic agent

== ENCOUNTER → 2016-09-10 | Outpatient (CLI) | payer OTHER ==
[~2016-09-10] MED LIST changes: +COLA100C5 PO; +DIBU10OI TOP; +MILKSUS PO; +MOTR200T44 PO; +PRENTAB55 PO; +TYLE325T5 PO; +ZOFR4TAB3 PO
--- NOTE | 2016-09-10 18:58 | REP ---
Obstetric sonography: History: Supervision of estimated growth and weight. Findings: Scanning through the gravid uterus demonstrates a viable single intrauterine gestation in a cephalic lie. motion is observed and heart rate is recorded at 152 beats per minute. A posterior grade 2 placenta is seen without evidence of previa or abruption. Amniotic fluid is subjectively normal. Amniotic fluid index is normal and 19.9 cm (8.1 24.8). There has been appropriate interval growth. Umbilical cord is seen draping across shoulders. Closed cervical length is 3.8 cm measured transabdominally. SD ratio in the umbilical cord artery by Doppler is normal at 2.02. cranium, face and profile, three-vessel cord, kidneys and bladder are seen today and are felt to be unremarkable. Biometry chart: BPD 8.1 cm 32 weeks 3 days Head circumference 29.2 cm 32 weeks 1 day Abdominal 29.9 cm 33 weeks 6 days Femur length 6.3 cm 32 weeks 3 days humeral length 5.6 cm 32 weeks 3 days HC/AC ratio normal 0.98, cephalic index normal 0.78, estimated weight 2127 grams 4 pounds 11 ounces 32nd percentile for 33 weeks 6 days. Impression: Viable single intrauterine gestation at 32 weeks 5 days by today's composite criteria. Expected gestational age estimate based on prior sonography is 34 weeks 3 days. ANDREA by prior sonography 10/19/2016. There has been appropriate interval growth. Signed by Yogesh Gonzalez MD 09/10/2016 07:26 P
== END ==
LOC: M RAD 16:24
PROVIDERS: ATTEND Advanced Practice Midwife
DX: O26.843 Uterine size-date discrepancy, third trimester (principal); O99.333 Smoking (tobacco) complicating pregnancy, third trimester; F17.210 Nicotine dependence, cigarettes, uncomplicated; Z3A.00 Weeks of gestation of pregnancy not specified

== ENCOUNTER → 2016-09-26 | Outpatient (REF) | payer OTHER | LOC: M LAB REF 16:56 | PROVIDERS: ATTEND Advanced Practice Midwife | DX: Z34.83 Encounter for supervision of other normal pregnancy, third trimester (principal) ==

== ENCOUNTER 2016-10-06 15:55 | Inpatient (IN) | payer OTHER ==
[~2016-10-06 15:55] MED LIST changes: -COLA100C5 PO; -DIBU10OI TOP; -MILKSUS PO; -MOTR200T44 PO; -PRENTAB55 PO; -TYLE325T5 PO
[2016-10-06] MEDS ORDERED: LACTATED RINGER'S 1000 ML IV STA (17:08)
[2016-10-06 17:28] LABS: MEAN CORPUSCULAR HEMOGLOBIN 32.2 pg (27.0-33.0); MEAN CORPUSCULAR HGB CONC 34.3 g/dl (32.0-36.5); MEAN CORPUSCULAR VOLUME 93.8 fl (80.0-96.0); RED CELL DISTRIBUTION WIDTH 12.8 % (11.5-14.5); WHITE BLOOD COUNT 15.9 K/mm3 (4.0-10.0)
[2016-10-06] MEDS ORDERED: BUTORPHANOL 2 MG/ML INJ (J0595) IV ONE (17:30)
[2016-10-06] MEDS ORDERED: LR 1,000 ML IV SCH (17:30)
[2016-10-06] MEDS ORDERED: PROMETHAZINE INJ 25 MG/ML VIAL (J2550) IV ONE (17:30)
[2016-10-06] MEDS ORDERED: OXYTOCIN 30 UNITS IN 0.9% NaCl 500ML IV BAG (J2590) As Ordered ONE (17:39)
[2016-10-06 18:09] VITALS: BP 113/93
[2016-10-06 18:21] VITALS: BP 131/77
[2016-10-06] MEDS ORDERED: OXYTOCIN DRIP 30 UNITS in APPROPRIATE DILUENT 1 EA IV SCH (18:29)
[2016-10-06] MEDS ORDERED: LIDOCAINE 1% MDV INJ 50 ML VIAL INFIL ONE (18:30)
[2016-10-06] MEDS ORDERED: MEASLES,MUMPS,RUBELLA VACCINE INJ (MMR-II) (90707) SC SCH (18:30)
[2016-10-06] MEDS ORDERED: ACETAMINOPHEN 500 MG TAB PO PRN (18:30)
[2016-10-06] MEDS ORDERED: ANUSOL HC CREAM 30GM TOP PRN (18:30)
[2016-10-06] MEDS ORDERED: RHOGAM 300 MCG (1500 IU) INJ (J2790) IM SCH (18:30)
[2016-10-06] MEDS ORDERED: METHYLERGONOVINE MALEATE 0.2 MG TAB PO PRN (18:30)
[2016-10-06] MEDS ORDERED: DOCUSATE SODIUM 100 MG CAP PO PRN (18:30)
[2016-10-06] MEDS ORDERED: MOM 30ML SUSPENSION UDC PO PRN (18:30)
[2016-10-06] MEDS ORDERED: DIBUCAINE 1% OINTMENT 30GM TOP PRN (18:30)
[2016-10-06 18:39] VITALS: BP 126/71
[2016-10-06 18:54] VITALS: BP 123/86
[2016-10-06 19:16] LABS: CORD GAS PCO2 V 45.4 mmHg; CORD GAS PH V 7.307 UNITS; CORD GAS PO2 V 29.2 mmHg
[2016-10-06 19:17] LABS: CORD GAS ABE V -4.2; CORD GAS HCO3 V 22.2 MEQ/L; CORD GAS O2 SAT V 69.8 %; CORD GAS SBC V 20.3 MEQ/L; CORD GAS TCO2 V 23.6 MEQ/L
[2016-10-06 19:18] LABS: CORD GAS ABE A -2.7; CORD GAS HCO3 A 24.2 MEQ/L; CORD GAS PCO2 A 49.2 mmHg; CORD GAS PH A 7.309 UNITS; CORD GAS PO2 A 39.7 mmHg; CORD GAS SBC A 21.9 MEQ/L; CORD GAS TCO2 A 25.7 MEQ/L
[2016-10-06 19:19] LABS: CORD GAS O2 SAT A 84.8 %
[2016-10-06 19:42] VITALS: BP 116/62
[2016-10-06 21:20] VITALS: BP 133/62
[2016-10-06] MEDS: IBUPROFEN 800 MG TAB PO PRN (23:31)
[2016-10-07 06:31] VITALS: BP 109/65
--- NOTE | 2016-10-07 06:59 | HPE ---
DATE OF ADMISSION: 10/06/2016 30-year-old, 3, para 1-0-1-1, estimated date of delivery 10/24/2016, presents at 37 weeks 3 days with reports of contractions through the day and spontaneous rupture of membranes of clear fluid 1520 hours. Denies bleeding. Fetus is active. Last normal menstrual period unknown. Sonogram at 9 weeks confirmed her date. Anatomy scan within normal limits. complicated by anxiety and tobacco use. Appropriate care. OBSTETRICAL HISTORY: 2009, missed (AB) with dilation and curettage. August 2010, normal spontaneous vaginal , induction of labor at 40 weeks for intrauterine growth restriction (IUGR), viable female, 5 pounds 9. She is allergic to CODEINE, SULFA and SULFA CROSS REACTORS. Medical/surgical history of methicillin-resistant Staphylococcus aureus (MRSA). Cultures have been negative through the . Anxiety, asthma and cholecystectomy in 2011. Ankle surgery and the previously noted dilation and curettage. FAMILY HISTORY: Diabetes, hypertension, heart disease, kidney disease and psychiatric disorders. SOCIAL: Single. Father of the baby and family are supportive. Reports smoking one-half pack per day. Denies alcohol. Reports remote history of marijuana use. Denies abuse. OBJECTIVE: Prepregnancy weight 150, total weight gain 19 pounds. O negative. Received RhoGAM. Rubella immune. VDRL, hepatitis B, hepatitis C, HIV, gonorrhea, Chlamydia all negative. Declined genetic screening. 1-hour glucose was 143. 3-hour was 177, 149, 146 and 113. Group B strep is negative. MRSA screen negative times three. She is uncomfortable, breathing with contractions. Vital signs are stable. Abdomen is soft, gravid, longitudinal lie. heart 145, moderate variability, category 1. Uterine contractions 3-5 minutes apart for 60 seconds. Sterile vaginal exam: 6 cm, 90% effaced, 0 station, clear fluid draining per vagina and cephalic. ASSESSMENT: Multiparity at term, active labor, category 1 tracing. PLAN: Admit. Patient plans intravenous (IV) sedation. Anticipate normal spontaneous vaginal .
[2016-10-07] MEDS: PRENATAL VITAMINS CHEWABLE TABLET PO SCH (08:00)
[2016-10-07] MEDS: IBUPROFEN 800 MG TAB PO PRN ×2 (08:00→22:41)
--- NOTE | 2016-10-07 09:17 | DN ---
DATE: 10/06/2016 Strong maternal bearing down efforts. Fully dilated +3 station at 1729. Viable female child delivered left occiput anterior (DHRUV) without difficulty at 1746. Spontaneous respirations with stimulation. Transitioned on maternal abdomen. Cord doubly clamped and cut by father of the baby once pulsations ceased. Apgars 8 and 9. Cord gases are pending. Placenta Trivedi intact with three-vessel cord at 1754. Fundus firmed. Bleeding well controlled with massage and IV Pitocin bolus. First-degree vaginal laceration repaired with two stitches of #3-0 Vicryl Rapide after infiltration with lidocaine. Estimated blood loss 100 mL. weight 3108 grams, 6 pounds 14 ounces. Sponge, sharp and instrument count correct. Mom and babe doing well.
[2016-10-07 18:00] VITALS: BP 120/80
[2016-10-07] MEDS: CEPACOL LOZENGE PO PRN (20:59)
[2016-10-08] MEDS: CEPACOL LOZENGE PO PRN ×2 (02:45→07:32)
[2016-10-08 05:32] VITALS: BP 126/81
[2016-10-08] MEDS: IBUPROFEN 800 MG TAB PO PRN (07:32)
[2016-10-08] MEDS: PRENATAL VITAMINS CHEWABLE TABLET PO SCH (07:33)
[2016-10-08] MEDS ORDERED: MILKSUS PO (07:57)
[2016-10-08] MEDS ORDERED: MOTR200T44 PO (07:57)
[2016-10-08] MEDS ORDERED: PRENTAB55 PO (07:57)
[2016-10-08] MEDS ORDERED: COLA100C5 PO (07:57)
[2016-10-08] MEDS ORDERED: TYLE325T5 PO (07:57)
[2016-10-08] MEDS ORDERED: DIBU10OI TOP (07:57)
== END 2016-10-08 10:20 | disposition home or self-care (01) | DRG 560 ==
LOC: M LDO 15:55 → M LDI 16:37 → M OBS 20:16
PROVIDERS: ADMIT Advanced Practice Midwife; ATTEND Advanced Practice Midwife
PROC: 10E0XZZ Delivery of Products of Conception, External Approach (ICD-10-PCS; principal; 2016-10-06)
PROC: 0HQ9XZZ Repair Perineum Skin, External Approach (ICD-10-PCS; 2016-10-06)
DX: O70.0 First degree perineal laceration during delivery (principal); O99.344 Other mental disorders complicating childbirth; F41.9 Anxiety disorder, unspecified; Z37.0 Single live birth; Z3A.37 37 weeks gestation of pregnancy; Z88.5 Allergy status to narcotic agent; Z88.2 Allergy status to sulfonamides; F17.200 Nicotine dependence, unspecified, uncomplicated; O99.334 Smoking (tobacco) complicating childbirth

== ENCOUNTER → 2017-03-18 | Outpatient (CLI) | payer OTHER ==
[2017-03-18 09:16] LABS: ALBUMIN 3.9 GM/DL (3.2-5.2); ALBUMIN/GLOBULIN RATIO 1.15 (1.00-1.93); ALKALINE PHOSPHATASE 78 U/L (45-117); ALT/SGPT 17 U/L (12-78); ANION GAP 6 MEQ/L (8-16); AST/SGOT 17 U/L (7-37); BILIRUBIN,TOTAL 0.5 MG/DL (0.2-1.0); BLOOD UREA NITROGEN 9 MG/DL (7-18); CALCIUM LEVEL 8.6 MG/DL (8.5-10.1); CARBON DIOXIDE LEVEL 25 MEQ/L (21-32); CHLORIDE LEVEL 110 MEQ/L (98-107); CHOLESTEROL LEVEL 116 MG/DL (<200); CHOLESTEROL RISK RATIO 2.974 (<5); CREATININE FOR GFR 0.79 MG/DL (0.55-1.02); GLOMERULAR FILTRATION RATE > 60.0 (>60); GLUCOSE, FASTING 90 MG/DL (70-100); HDL CHOLESTEROL 39 MG/DL (>40); NON-HDL-C 77 MG/DL; SODIUM LEVEL 141 MEQ/L (136-145); TOTAL PROTEIN 7.3 GM/DL (6.4-8.2); TRIGLYCERIDES LEVEL 60 MG/DL (<150)
== END ==
LOC: M LAB 08:18
DX: Z00.00 Encounter for general adult medical examination without abnormal findings (principal); Z13.220 Encounter for screening for lipoid disorders
CPT/HCPCS: 80053

== ENCOUNTER → 2017-08-09 | Outpatient (REF) | payer OTHER | LOC: M LAB REF 09:56 | DX: J02.9 Acute pharyngitis, unspecified (principal) ==

== ENCOUNTER → 2017-09-21 | Outpatient (REF) | payer OTHER | LOC: M LAB REF 21:52 | DX: L03.211 Cellulitis of face (principal) ==

== ENCOUNTER 2018-11-16 08:18 | Emergency (ER) | payer OTHER ==
[~2018-11-16] VITALS: Ht 157.5 cm; Wt 71.0 kg
[~2018-11-16 08:18] MED LIST changes: -/MOXI40TA OR; +AVEL1TAB2 OR; +COLA100C5 PO; +DIBU10OI TOP; +GNP200CA2 PO; +MILK120011 PO; +MOTR200T44 PO; +PRENTAB55 PO; +TYLE325T5 PO; +ZOFR4TAB14 PO; -ZOFR4TAB3 PO
[2018-11-16] MEDS ORDERED: ALBUTEROL SULFATE 2.5 MG/0.5 ML INH NEB SOLN INH PRN (09:45)
[2018-11-16] MEDS ORDERED: IBUPROFEN 600 MG TAB PO ONE (09:45)
--- NOTE | 2018-11-16 10:17 | REP ---
Chest x-ray: Two views. History: Expiratory wheezing. Comparison study: March 27, 2015. Findings: There is a focal pulmonary parenchymal opacity overlying the heart anteriorly just behind the lower sternum on the lateral radiograph consistent with a subtle infiltrate. This is not clearly visible on the frontal view but may be right-sided. Pleural angles are sharp. Lung vo are otherwise clear. The heart is not enlarged. Pulmonary vasculature is not increased. Impression: Subtle infiltrate anteriorly overlying the heart on the lateral film, probable right middle lobe infiltrate. Otherwise no active disease. Electronically Signed by Yogesh Gonzalez MD 11/16/2018 10:31 A
[2018-11-16 10:43] LABS: INFLUENZA A AMPLIFICATION NEGATIVE (NEGATIVE); INFLUENZA B AMPLIFICATION NEGATIVE (NEGATIVE)
[2018-11-16] MEDS ORDERED: PRED20TA PO (11:02)
[2018-11-16] MEDS ORDERED: PROV108A INH (11:02)
[2018-11-16] MEDS ORDERED: AZIT-12 PO (11:02)
[2018-11-16 11:11] VITALS: BP 106/71
== END 2018-11-16 11:14 | disposition home or self-care (01) ==
LOC: M ED 08:18
DX: J18.9 Pneumonia, unspecified organism (principal); I10 Essential (primary) hypertension; F17.210 Nicotine dependence, cigarettes, uncomplicated; J45.909 Unspecified asthma, uncomplicated; K21.9 Gastro-esophageal reflux disease without esophagitis; Z88.2 Allergy status to sulfonamides

== ENCOUNTER → 2018-12-27 | Outpatient (REF) | payer OTHER ==
[~2018-12-27] MED LIST changes: +AZIT-12 PO; +PRED20TA PO; +PROV108A INH
[2018-12-27 21:56] LABS: INFLUENZA A AMPLIFICATION NEGATIVE (NEGATIVE); INFLUENZA B AMPLIFICATION NEGATIVE (NEGATIVE)
== END ==
LOC: M LAB REF 08:58
PROVIDERS: ATTEND Nurse Practitioner Family
DX: J11.1 Influenza due to unidentified influenza virus with other respiratory manifestations (principal)

== ENCOUNTER 2019-01-01 08:29 | Emergency (ER) | payer OTHER ==
[~2019-01-01] VITALS: Ht 154.9 cm; Wt 79.5 kg
[2019-01-01] MEDS ORDERED: ACETAMINOPHEN 500 MG TAB PO ONE (11:00)
--- NOTE | 2019-01-01 11:30 | REP ---
CHEST X-RAY: Two views. HISTORY: Right-sided wheezing. Tachycardia. COMPARISON STUDY: November 16, 2018 . FINDINGS: There is still a vague area of increased density overlying the heart in the retrosternal region on the lateral radiograph although it appears improved. Prior study showed what was felt to be an infiltrate in this location. No new infiltrate is appreciated. Pleural angles are sharp. Heart is not enlarged. IMPRESSION: Improved, but some persistent, density in the right middle lobe distribution overlying the heart on the lateral film. Otherwise no active disease. Electronically Signed by Yogesh Gonzalez MD 01/01/2019 01:53 P
[2019-01-01] MEDS ORDERED: DOXY-350 PO (11:45)
[2019-01-01 11:50] VITALS: BP 131/75
== END 2019-01-01 11:55 | disposition home or self-care (01) ==
LOC: M ED 08:29
DX: J18.9 Pneumonia, unspecified organism (principal); H66.92 Otitis media, unspecified, left ear; J45.909 Unspecified asthma, uncomplicated; K21.9 Gastro-esophageal reflux disease without esophagitis; Z87.01 Personal history of pneumonia (recurrent); F17.200 Nicotine dependence, unspecified, uncomplicated; Z88.2 Allergy status to sulfonamides

== ENCOUNTER → 2019-02-03 | Outpatient (CLI) | payer OTHER ==
[~2019-02-03] MED LIST changes: +DOXY-350 PO
--- NOTE | 2019-02-03 08:53 | PFTRPT ---
Site: [facility], [address] [place] [address], [address] ID: [id number] Name: CUATE PELAEZ Visit Date: 02/03/2019 Second ID: [id number] Referring Doctor: DEBBIE QUINONEZ Reviewing Doctor: Bipin Page MD Container Packer Operator: Heidi Dumont Age: 33 : 1985 Sex: Female Race: Height: 62.00 Inches Weight: 165.00 Lbs BSA: 1.76 Order IDs: [id number] Requested Test(s): <RESP-PFT.DLCO> Diagnosis: R06.2 test meet the ATS standards for acceptability and repeatability. Pt was given four puffs of albuterol for postbronchodilator. Review Status: Not Reviewed Pre-Bronch Post-Bronch Pred Actual %Pred Actual %Chng SPIROMETRY FVC (L) 3.52 2.77 78 2.98 7 FEV1 (L) 2.97 1.93 65 2.28 18 FEV1/FVC (%) 84 70 83 76 9 FEF 25% (L/sec) 5.44 3.09 56 4.70 52 FEF 50% (L/sec) 4.44 1.49 33 2.52 69 FEF 75% (L/sec) 1.85 0.21 11 0.97 355 FEF 25-75% (L/sec) 3.28 1.17 35 2.10 78 FEF Max (L/sec) 6.71 4.32 64 5.51 27 FIVC (L) 2.60 2.91 12 FIF 50% (L/sec) 4.02 3.74 93 2.53 -32 FIF Max (L/sec) 3.89 2.70 -30 MVV (L/min) 103 74 71 Expiratory Time (sec) 7.35 7.10 -3 Back Extrap Vol (L) 0.09 0.07 -16 Time To FEFmax (sec) 0.084 0.079 -5 LUNG VOLUMES SVC (L) 3.42 2.86 83 IC (L) 2.16 2.06 95 ERV (L) 1.26 0.79 62 TGV (L) 2.59 2.52 97 RV (Pleth) (L) 1.33 1.73 130 TLC (Pleth) (L) 4.75 4.59 96 RV/TLC (Pleth) (%) 28 38 134 DIFFUSION DLCOunc (ml/min/mmHg) 23.90 23.60 98 DLCOcor (ml/min/mmHg) 23.90 23.82 99 DL/VA (ml/min/mmHg/L) 5.03 5.72 113 VA (L) 4.75 4.16 87 BHT (sec) 10.50 IVC (L) 2.85 TLC (SB) (L) 4.31 AIRWAYS RESISTANCE Raw (cmH2O/L/s) 1.86 3.99 214 Gaw (L/s/cmH2O) 1.03 0.26 25 sRaw (cmH2O*s) 4.76 11.94 250 sGaw (1/cmH2O*s) 0.20 0.09 43 BLOOD GASES Hgb (gm/dL) 13.1
== END ==
LOC: M CARPUL 08:14
PROVIDERS: ATTEND Nurse Practitioner Family
DX: R06.2 Wheezing (principal)

== ENCOUNTER → 2019-02-05 | Outpatient (CLI) | payer OTHER ==
--- NOTE | 2019-02-05 14:52 | REP ---
Two-view chest: 02/05/2019. Indication: Pneumonia. Follow up. Comparison: 01/01/2019. Findings: The lungs are clear. There is no pleural effusion or pneumothorax. The cardiomediastinal silhouette is unremarkable. Impression: Resolution of the right middle lobe pneumonia. No acute cardiopulmonary process. Electronically Signed by Froilan Rincon DO 02/05/2019 02:44 P
== END ==
LOC: M RAD 13:27
PROVIDERS: ATTEND Nurse Practitioner Family
DX: J18.9 Pneumonia, unspecified organism (principal)

== ENCOUNTER 2019-10-30 09:48 | Emergency (ER) | payer OTHER ==
[~2019-10-30] VITALS: Ht 154.9 cm; Wt 65.9 kg
--- NOTE | 2019-10-30 10:08 | REPVR ---
PROCEDURE INFORMATION: Exam: XR Chest, 2 Views Exam date and time: 10/30/2019 10:02 AM Age: 33 years old Clinical indication: Other: Pain; Additional info: Pain with respiration TECHNIQUE: Imaging protocol: XR of the chest Views: 2 views. COMPARISON: [place] Chest, 2 view PA, Lat 02/05/2019 1:39 PM FINDINGS: Lungs: Unremarkable. No consolidation. Pleural space: Unremarkable. No pleural effusion. No pneumothorax. Heart/Mediastinum: The cardiomediastinal silhouette is fairly stable in appearance. Bones/joints: Unremarkable. IMPRESSION: No evidence for acute pulmonary disease. Electronically signed by: Oscar Bailey On 10/30/2019 10:07:32 AM
[2019-10-30] MEDS: ALBUTEROL 90 MCG/ACT 8GM HFA INHALER INH SCH ×3 (11:35→12:06)
[2019-10-30 11:47] LABS: BASO % 0.3 % (0.0-1.0); EOS # 0.1 10^3/uL (0.0-0.5); EOS % 0.5 % (0.0-3.0); HEMATOCRIT 44.9 % (36.0-47.0); HEMOGLOBIN 15.5 g/dl (12.0-15.5); LYMPH # 1.7 10^3/uL (1.5-5.0); LYMPH % 17.2 % (24.0-44.0); MEAN CORPUSCULAR HEMOGLOBIN 32.5 pg (27.0-33.0); MEAN CORPUSCULAR HGB CONC 34.5 g/dl (32.0-36.5); MEAN CORPUSCULAR VOLUME 94.1 fl (80.0-96.0); MONO # 0.5 10^3/uL (0.0-0.8); MONO % 5.6 % (0.0-5.0); NEUTROPHILS # 7.3 10^3/uL (1.5-8.5); PLATELET COUNT, AUTOMATED 220 10^3/uL (150-450); RED BLOOD COUNT 4.77 10^6/uL (4.00-5.40); WHITE BLOOD COUNT 9.6 10^3/uL (4.0-10.0)
[2019-10-30 12:13] LABS: BLOOD UREA NITROGEN 11 MG/DL (7-18); CALCIUM LEVEL 8.9 MG/DL (8.5-10.1); CARBON DIOXIDE LEVEL 23 MEQ/L (21-32); CHLORIDE LEVEL 109 MEQ/L (98-107); CK-MB VALUE MASS 1.5 NG/ML (<3.6); CPK CREATINE PHOSPHOKINASE 209 U/L (26-192); CREATININE FOR GFR 0.76 MG/DL (0.55-1.30); GLOMERULAR FILTRATION RATE > 60.0 (>60); GLUCOSE, FASTING 82 MG/DL (70-100); MB/CK RELATIVE INDEX 0.72 (< OR =4); POTASSIUM SERUM 5.5 MEQ/L (3.5-5.1); SODIUM LEVEL 138 MEQ/L (136-145); TROPONIN I < 0.02 NG/ML (< 0.10)
[2019-10-30] MEDS ORDERED: ISOVUE-370 76% 100ML VIAL As Ordered ONE (13:08)
[2019-10-30] MEDS ORDERED: methylPREDNISolone 125MG 2ML VIAL IV ONE (13:15)
--- NOTE | 2019-10-30 13:49 | REPVR ---
PROCEDURE INFORMATION: Exam: CT Angiography Chest With Contrast Exam date and time: 10/30/2019 1:34 PM Age: 33 years old Clinical indication: Chest wall pain; Additional info: Pleuritic pain, elevated dimer, R/O pe TECHNIQUE: Imaging protocol: Computed tomographic angiography of the chest with intravenous contrast. 3D rendering (Not supervised by radiologist): MIP and/or 3D reconstructed images were created by the technologist. Radiation optimization: All CT scans at this facility use at least one of these dose optimization techniques: automated exposure control; mA and/or kV adjustment per patient size (includes targeted exams where dose is matched to clinical indication); or iterative reconstruction. Contrast material: ISOVUE 370; Contrast volume: 75 ml; Contrast route: INTRAVENOUS (IV); COMPARISON: CR Chest, 2 view PA, Lat 10/30/2019 9:53 AM FINDINGS: Pulmonary arteries: No pulmonary embolus is identified. Aorta: The thoracic aorta is nonaneurysmal. Lungs: There are mild patchy airspace opacities in the right lower lobe, suggesting pneumonia. The lungs are otherwise clear. The central airways appear patent. Pleural space: Unremarkable. No pneumothorax. No pleural effusion. Heart: Unremarkable. No cardiomegaly. No pericardial effusion. Lymph nodes: Unremarkable. No enlarged lymph nodes. Gallbladder and bile ducts: Cholecystectomy clips are present. Bones/joints: Degenerative changes involve the spine. Mild degenerative changes involve the spine. Soft tissues: Unremarkable. IMPRESSION: 1. No pulmonary embolus identified. 2. Mild patchy airspace opacities in the right lower lobe, suggesting pneumonia. Electronically signed by: Oscar Bailey On 10/30/2019 13:49:25 PM
[2019-10-30] MEDS ORDERED: LEVA750T7 PO (14:24)
[2019-10-30] MEDS ORDERED: PRED20TA PO (14:24)
[2019-10-30] MEDS ORDERED: PROAAER10 INH (14:31)
[2019-10-30 14:43] VITALS: BP 122/68
--- NOTE | 2019-11-08 11:37 | ECGEPIP ---
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
== END 2019-10-30 15:00 | disposition home or self-care (01) ==
LOC: M ED 09:48
DX: J45.901 Unspecified asthma with (acute) exacerbation (principal); J18.9 Pneumonia, unspecified organism; B34.8 Other viral infections of unspecified site; J44.9 Chronic obstructive pulmonary disease, unspecified; F41.9 Anxiety disorder, unspecified; K21.9 Gastro-esophageal reflux disease without esophagitis; Z79.899 Other long term (current) drug therapy; Z88.1 Allergy status to other antibiotic agents; Z88.2 Allergy status to sulfonamides; F17.210 Nicotine dependence, cigarettes, uncomplicated
CPT/HCPCS: 71046; 71275; 80048; 82550; 82553; 84702; 85025; 85379; 87486; 87581; 87633; 87798; 93005; 96374; 99284; J2930; Q9967

== ENCOUNTER 2020-05-05 08:40 | Emergency (ER) | payer OTHER ==
[~2020-05-05] VITALS: Ht 154.9 cm; Wt 68.6 kg
[~2020-05-05 08:40] MED LIST changes: +BUPR150T12 PO; -BUPR150T3 PO; -CLIN150C14 PO; +CLIN150C15 PO; -GNP200CA2 PO; +IBUP200C90 PO; +LEVA750T7 PO; +PROAAER10 INH
[2020-05-05] MEDS ORDERED: ACET-683 PO (08:57)
[2020-05-05] MEDS ORDERED: ALBU8.5H (08:57)
[2020-05-05] MEDS ORDERED: predniSONE 20 MG TAB PO ONE (09:20)
[2020-05-05] MEDS ORDERED: COMBIVENT RESPIMAT 100-20MCG INHALER 4GM INH ONE (09:20)
--- NOTE | 2020-05-05 09:39 | REP ---
INDICATION: cough, sob, smoker. right sided lung pain. COMPARISON: 10/30/2019. TECHNIQUE: SINGLE PORTABLE AP VIEW OF THE CHEST WAS PERFORMED. FINDINGS: THERE IS NO ACUTE INFILTRATE OR PULMONARY EDEMA. LUNGS ARE CLEAR. HEART IS NOT SIGNIFICANTLY ENLARGED. MEDIASTINAL SILHOUETTE IS UNREMARKABLE. THE VISUALIZED OSSEOUS STRUCTURES ARE INTACT. IMPRESSION: NO ACUTE PULMONARY DISEASE. <Electronically signed by Amanuel Robin > 05/05/20 0935
[2020-05-05 09:44] LABS: BASO % 0.4 % (0.0-1.0); EOS # 0.1 10^3/uL (0.0-0.5); EOS % 0.9 % (0.0-3.0); HEMOGLOBIN 15.4 g/dl (12.0-15.5); LYMPH % 14.8 % (24.0-44.0); MEAN CORPUSCULAR HEMOGLOBIN 32.8 pg (27.0-33.0); MEAN CORPUSCULAR HGB CONC 34.2 g/dl (32.0-36.5); MEAN CORPUSCULAR VOLUME 95.9 fl (80.0-96.0); MONO # 0.4 10^3/uL (0.0-0.8); MONO % 6.1 % (2.0-8.0); NEUTROPHILS # 5.4 10^3/uL (1.5-8.5); NEUTROPHILS % 77.5 % (36.0-66.0); PLATELET COUNT, AUTOMATED 200 10^3/uL (150-450); RED BLOOD COUNT 4.69 10^6/uL (4.00-5.40); WHITE BLOOD COUNT 6.9 10^3/uL (4.0-10.0)
[2020-05-05 10:02] LABS: BLOOD UREA NITROGEN 5 MG/DL (7-18); CALCIUM LEVEL 8.5 MG/DL (8.5-10.1); CARBON DIOXIDE LEVEL 24 MEQ/L (21-32); CHLORIDE LEVEL 110 MEQ/L (98-107); CREATININE FOR GFR 0.87 MG/DL (0.55-1.30); GLOMERULAR FILTRATION RATE > 60.0 (>60); GLUCOSE, FASTING 97 MG/DL (70-100); POTASSIUM SERUM 3.9 MEQ/L (3.5-5.1); SODIUM LEVEL 140 MEQ/L (136-145)
[2020-05-05] MEDS ORDERED: TESS100C PO (10:29)
[2020-05-05] MEDS ORDERED: AFRI0.058 (10:29)
[2020-05-05] MEDS ORDERED: PRED20TA PO (10:29)
[2020-05-05 10:49] VITALS: BP 117/72
== END 2020-05-05 11:01 | disposition home or self-care (01) ==
LOC: M ED 08:40
DX: J06.9 Acute upper respiratory infection, unspecified (principal); B34.9 Viral infection, unspecified; J44.1 Chronic obstructive pulmonary disease with (acute) exacerbation; Z20.822 Contact with and (suspected) exposure to COVID-19; F17.200 Nicotine dependence, unspecified, uncomplicated; Z88.2 Allergy status to sulfonamides; Z79.899 Other long term (current) drug therapy
CPT/HCPCS: 36415; 71045; 80048; 85025; 94640; 99283; U0003

== ENCOUNTER 2020-05-11 14:44 | Emergency (ER) | payer OTHER ==
[~2020-05-11] VITALS: Ht 154.9 cm; Wt 69.3 kg
[~2020-05-11 14:44] MED LIST changes: +ACET-683 PO; +AFRI0.058; +ALBU8.5H; +TESS100C PO
[2020-05-11] MEDS ORDERED: methylPREDNISolone 125MG 2ML VIAL IV ONE (16:55)
[2020-05-11] MEDS: COMBIVENT RESPIMAT 100-20MCG INHALER 4GM INH SCH ×3 (17:29→18:32)
[2020-05-11 17:51] VITALS: O2SAT 98
[2020-05-11 18:15] LABS: BASO # 0.1 10^3/uL (0.0-0.2); BASO % 0.5 % (0.0-1.0); EOS # 0.1 10^3/uL (0.0-0.5); EOS % 1.1 % (0.0-3.0); HEMATOCRIT 44.6 % (36.0-47.0); HEMOGLOBIN 15.3 g/dl (12.0-15.5); LYMPH # 3.4 10^3/uL (1.5-5.0); LYMPH % 30.6 % (24.0-44.0); MEAN CORPUSCULAR HEMOGLOBIN 32.5 pg (27.0-33.0); MEAN CORPUSCULAR HGB CONC 34.3 g/dl (32.0-36.5); MEAN CORPUSCULAR VOLUME 94.7 fl (80.0-96.0); MONO # 0.5 10^3/uL (0.0-0.8); MONO % 4.8 % (2.0-8.0); NEUTROPHILS # 6.9 10^3/uL (1.5-8.5); NEUTROPHILS % 62.5 % (36.0-66.0); PLATELET COUNT, AUTOMATED 284 10^3/uL (150-450); RED BLOOD COUNT 4.71 10^6/uL (4.00-5.40); WHITE BLOOD COUNT 11.1 10^3/uL (4.0-10.0)
[2020-05-11 18:52] LABS: ALBUMIN 4.2 GM/DL (3.2-5.2); ALT/SGPT 20 U/L (12-78); BILIRUBIN,DIRECT < 0.1 MG/DL (0.0-0.2); BILIRUBIN,TOTAL 0.5 MG/DL (0.2-1.0); BLOOD UREA NITROGEN 13 MG/DL (7-18); CARBON DIOXIDE LEVEL 30 MEQ/L (21-32); CHLORIDE LEVEL 107 MEQ/L (98-107); CK-MB VALUE MASS 2.4 NG/ML (<3.6); CPK CREATINE PHOSPHOKINASE 148 U/L (26-192); GLOMERULAR FILTRATION RATE > 60.0 (>60); GLUCOSE, FASTING 75 MG/DL (70-100); MB/CK RELATIVE INDEX 1.62 (< OR =4); NT-PRO BNP 70 PG/ML (<125); POTASSIUM SERUM 4.1 MEQ/L (3.5-5.1); SODIUM LEVEL 142 MEQ/L (136-145); TOTAL PROTEIN 7.5 GM/DL (6.4-8.2); TROPONIN I < 0.02 NG/ML (< 0.10)
--- NOTE | 2020-05-11 19:31 | REP ---
INDICATION: DYSPNEA/COUGH. COMPARISON: Comparison chest x-ray May 05, 2020. TECHNIQUE: Portable upright AP chest radiograph. FINDINGS: The lungs are well inflated and free of infiltrate. Pleural angles are sharp. Heart size is normal. Pulmonary vasculature is not increased. IMPRESSION: No active disease. <Electronically signed by Edinson Gonzalez > 05/11/201926
[2020-05-11] MEDS ORDERED: PRED20TA PO (19:45)
[2020-05-11] MEDS ORDERED: ALBU83IN NEB (19:45)
[2020-05-11 19:51] VITALS: BP 113/59
--- NOTE | 2020-05-12 07:33 | ECGEPIP ---
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
== END 2020-05-11 20:01 | disposition home or self-care (01) ==
LOC: M ED 14:44
DX: J44.1 Chronic obstructive pulmonary disease with (acute) exacerbation (principal); J45.901 Unspecified asthma with (acute) exacerbation; J06.9 Acute upper respiratory infection, unspecified; B34.1 Enterovirus infection, unspecified; R00.1 Bradycardia, unspecified; R05 Cough; R19.7 Diarrhea, unspecified; R10.9 Unspecified abdominal pain; K21.9 Gastro-esophageal reflux disease without esophagitis; F41.9 Anxiety disorder, unspecified; F17.200 Nicotine dependence, unspecified, uncomplicated; Z88.2 Allergy status to sulfonamides; Z79.51 Long term (current) use of inhaled steroids; Z79.899 Other long term (current) drug therapy
CPT/HCPCS: 71045; 80048; 80076; 82550; 82553; 83880; 84436; 84443; 84702; 85025; 87798; 93005; 94640; 94664; 96374; 99284; J2930

== ENCOUNTER 2020-07-23 06:13 | Emergency (ER) | payer OTHER ==
[~2020-07-23] VITALS: Ht 154.9 cm; Wt 66.8 kg
[~2020-07-23 06:13] MED LIST changes: +ALBU83IN NEB; -DIBU10OI TOP; +DIBU28OI2 TOP
[2020-07-23] MEDS ORDERED: IBUP1TAB6 PO (06:21)
[2020-07-23] MEDS ORDERED: methylPREDNISolone 125MG 2ML VIAL IV ONE (07:20)
[2020-07-23 07:42] LABS: BASO % 0.6 % (0.0-1.0); EOS # 0.1 10^3/uL (0.0-0.5); EOS % 1.8 % (0.0-3.0); HEMATOCRIT 42.6 % (36.0-47.0); HEMOGLOBIN 14.5 g/dl (12.0-15.5); LYMPH # 1.5 10^3/uL (1.5-5.0); LYMPH % 22.7 % (24.0-44.0); MEAN CORPUSCULAR HEMOGLOBIN 32.1 pg (27.0-33.0); MEAN CORPUSCULAR VOLUME 94.2 fl (80.0-96.0); MONO # 0.4 10^3/uL (0.0-0.8); MONO % 6.3 % (2.0-8.0); NEUTROPHILS # 4.5 10^3/uL (1.5-8.5); NEUTROPHILS % 68.4 % (36.0-66.0); PLATELET COUNT, AUTOMATED 213 10^3/uL (150-450); RED BLOOD COUNT 4.52 10^6/uL (4.00-5.40); WHITE BLOOD COUNT 6.5 10^3/uL (4.0-10.0)
[2020-07-23] MEDS: IPRATROPIUM 0.5MG/ALBUTEROL 2.5MG INH SOL UD 3ML (DUONEB) NEB PRN ×2 (07:52→08:22)
--- NOTE | 2020-07-23 07:58 | ECGEPIP ---
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
[2020-07-23 08:09] LABS: CK-MB VALUE MASS 1.2 NG/ML (<3.6); CPK CREATINE PHOSPHOKINASE 231 U/L (26-192); MB/CK RELATIVE INDEX 0.52 (< OR =4); TROPONIN I < 0.02 NG/ML (< 0.10)
--- NOTE | 2020-07-23 08:44 | REP ---
INDICATION: DYSPNEA/COUGH COMPARISON: 05/11/2020 TECHNIQUE: PA and lateral. FINDINGS: The mediastinum and cardiac silhouette are normal. The lung vo are clear and without acute consolidation, effusion, or pneumothorax. The skeletal structures are intact and normal. IMPRESSION: No acute cardiopulmonary process. <Electronically signed by Rolando Tran > 07/23/20 [id number]
[2020-07-23 10:10] VITALS: BP 118/70
[2020-07-23] MEDS ORDERED: MEDR4PAK PO (10:11)
== END 2020-07-23 10:19 | disposition home or self-care (01) ==
LOC: M ED 06:13
DX: J44.1 Chronic obstructive pulmonary disease with (acute) exacerbation (principal); J70.5 Respiratory conditions due to smoke inhalation; X08.8XXA Exposure to other specified smoke, fire and flames, initial encounter; F17.200 Nicotine dependence, unspecified, uncomplicated; F12.10 Cannabis abuse, uncomplicated; F41.9 Anxiety disorder, unspecified; Z88.1 Allergy status to other antibiotic agents; Z88.2 Allergy status to sulfonamides
CPT/HCPCS: 71046; 80047; 82375; 82550; 82553; 84702; 85025; 85379; 93005; 94640; 96374; 99284; J2930

== ENCOUNTER 2020-08-01 10:01 | Emergency (ER) | payer OTHER ==
[~2020-08-01] VITALS: Ht 154.9 cm; Wt 65.9 kg
[~2020-08-01 10:01] MED LIST changes: +IBUP1TAB6 PO; +MEDR4PAK PO
[2020-08-01 10:12] VITALS: BP 117/74
[2020-08-01] MEDS ORDERED: DOXY100C37 PO ×2 (13:08→13:09)
== END 2020-08-01 13:26 | disposition home or self-care (01) ==
LOC: M ED 10:01
DX: R06.2 Wheezing (principal); L98.9 Disorder of the skin and subcutaneous tissue, unspecified; Z86.14 Personal history of Methicillin resistant Staphylococcus aureus infection; K21.9 Gastro-esophageal reflux disease without esophagitis; J44.9 Chronic obstructive pulmonary disease, unspecified; F17.200 Nicotine dependence, unspecified, uncomplicated; Z88.2 Allergy status to sulfonamides; Z79.51 Long term (current) use of inhaled steroids; Z79.899 Other long term (current) drug therapy

== ENCOUNTER 2020-11-17 10:36 | Emergency (ER) | payer OTHER ==
[~2020-11-17] VITALS: Ht 157.5 cm; Wt 63.8 kg
[~2020-11-17 10:36] MED LIST changes: -CLIN150C15 PO; +CLIN150C17 PO; +DOXY1CAP62 PO
[2020-11-17 12:12] VITALS: O2SAT 95
--- NOTE | 2020-11-17 12:24 | REP ---
INDICATION: DYSPNEA/COUGH. COMPARISON: July 23, 2020. TECHNIQUE: Portable upright AP chest radiograph. FINDINGS: The lungs are well inflated and free of infiltrate. Pleural angles are sharp. Heart size is normal. Pulmonary vasculature is not increased. EKG monitoring electrodes overlie the chest. IMPRESSION: No active disease. <Electronically signed by Edinson Gonzalez > 11/17/20 0106
[2020-11-17] MEDS ORDERED: methylPREDNISolone 125MG 2ML VIAL IV ONE (12:25)
[2020-11-17 12:57] LABS: BASO % 0.5 % (0.0-1.0); EOS % 0.3 % (0.0-3.0); HEMATOCRIT 46.7 % (36.0-47.0); HEMOGLOBIN 16.1 g/dl (12.0-15.5); LYMPH # 1.8 10^3/uL (1.5-5.0); MEAN CORPUSCULAR HEMOGLOBIN 32.6 pg (27.0-33.0); MEAN CORPUSCULAR HGB CONC 34.5 g/dl (32.0-36.5); MEAN CORPUSCULAR VOLUME 94.5 fl (80.0-96.0); MONO # 0.5 10^3/uL (0.0-0.8); MONO % 6.4 % (2.0-8.0); NEUTROPHILS # 5.5 10^3/uL (1.5-8.5); NEUTROPHILS % 69.5 % (36.0-66.0); PLATELET COUNT, AUTOMATED 228 10^3/uL (150-450); RED BLOOD COUNT 4.94 10^6/uL (4.00-5.40)
[2020-11-17 13:35] LABS: ALBUMIN 3.8 GM/DL (3.2-5.2); ALT/SGPT 16 U/L (12-78); BILIRUBIN,DIRECT < 0.1 MG/DL (0.0-0.2); BILIRUBIN,TOTAL 0.4 MG/DL (0.2-1.0); BLOOD UREA NITROGEN 8 MG/DL (7-18); CARBON DIOXIDE LEVEL 25 MEQ/L (21-32); CHLORIDE LEVEL 110 MEQ/L (98-107); CK-MB VALUE MASS 1.5 NG/ML (<3.6); CPK CREATINE PHOSPHOKINASE 162 U/L (26-192); CREATININE FOR GFR 0.66 MG/DL (0.55-1.30); GLOMERULAR FILTRATION RATE > 60.0 (>60); GLUCOSE, FASTING 70 MG/DL (70-100); MB/CK RELATIVE INDEX 0.93 (< OR =4); NT-PRO BNP 76 PG/ML (<125); POTASSIUM SERUM 4.9 MEQ/L (3.5-5.1); SODIUM LEVEL 139 MEQ/L (136-145); THYROID STIMULATING HORMONE 0.759 uIU/ML (0.358-3.740); TOTAL PROTEIN 7.1 GM/DL (6.4-8.2); TROPONIN I < 0.02 NG/ML (< 0.10)
[2020-11-17] MEDS ORDERED: PRED10TA2 PO (13:53)
[2020-11-17 14:00] VITALS: BP 110/55
--- NOTE | 2020-11-17 19:24 | ECGEPIP ---
[facility] - ED Test Date: 2020-11-17 Pat Name: CUATE PELAEZ Department: Room: - Gender: Female Front Maker: VIRIDIANA : 1985 Requested By: CONNIE Doss Order Number: [id number] Reading MD: Don Harmon Measurements Intervals [place] Rate: 55 P: 116 NE: 132 QRS: 110 QRSD: 84 T: 129 QT: 402 QTc: 384 Interpretive Statements SIMILAR TO 07/23/20Sinus bradycardia with sinus arrhythmia Electronically Signed on 11-17-2020 19:23:49 EDT by Don Harmon
== END 2020-11-17 14:10 | disposition home or self-care (01) ==
LOC: M ED 10:36
DX: J44.9 Chronic obstructive pulmonary disease, unspecified (principal); B34.8 Other viral infections of unspecified site; F17.200 Nicotine dependence, unspecified, uncomplicated; K21.9 Gastro-esophageal reflux disease without esophagitis; F41.9 Anxiety disorder, unspecified; Z88.1 Allergy status to other antibiotic agents; Z88.2 Allergy status to sulfonamides
CPT/HCPCS: 71045; 80048; 80076; 82550; 82553; 83880; 84443; 85025; 87798; 93005; 93041; 94760; 96374; 99285; J2930

== ENCOUNTER → 2020-12-27 | Outpatient (CLI) | payer OTHER ==
[~2020-12-27] MED LIST changes: +DOXY-443 PO; -DOXY1CAP62 PO; +PRED10TA2 PO
== END ==
LOC: M LABSMTC 10:15
PROVIDERS: ATTEND Family Medicine
DX: Z11.52 Encounter for screening for COVID-19 (principal); Z20.822 Contact with and (suspected) exposure to COVID-19

== ENCOUNTER → 2021-07-25 | Outpatient (REF) | payer OTHER ==
[~2021-07-25] MED LIST changes: -AFRI0.058; +ALBU2.5V10 NEB; -ALBU83IN NEB; +OXYM15SP2
== END ==
LOC: M SFHCPLAZ 12:58
PROVIDERS: ATTEND Physician Assistant
DX: R06.02 Shortness of breath (principal)

== ENCOUNTER 2021-12-22 12:33 | Emergency (ER) | payer OTHER ==
[~2021-12-22] VITALS: Ht 157.5 cm; Wt 61.6 kg
[~2021-12-22 12:33] MED LIST changes: +ALBU6.7H6 INH; -PROV108A INH
[2021-12-22 14:01] LABS: RSV AMPLIFICATION NEGATIVE (NEGATIVE)
[2021-12-22] MEDS ORDERED: OSEL75CA PO (14:38)
[2021-12-22] MEDS ORDERED: VENTAER INH (14:38)
[2021-12-22 15:11] VITALS: BP 108/67
== END 2021-12-22 15:14 | disposition home or self-care (01) ==
LOC: M ED 12:33
DX: J06.9 Acute upper respiratory infection, unspecified (principal); J44.9 Chronic obstructive pulmonary disease, unspecified; F17.200 Nicotine dependence, unspecified, uncomplicated; Z88.1 Allergy status to other antibiotic agents; Z79.51 Long term (current) use of inhaled steroids; Z79.899 Other long term (current) drug therapy

== ENCOUNTER 2022-05-16 17:52 | Emergency (ER) | payer OTHER ==
[~2022-05-16] VITALS: Ht 154.9 cm; Wt 76.5 kg
[2022-05-16 17:52] VITALS: BP 120/67
[~2022-05-16 17:52] MED LIST changes: -DOXY-350 PO; +DOXY-444 PO; +OSEL75CA PO; +VENTAER INH
[2022-05-16] MEDS ORDERED: [UNRECOGNIZED DRUG - OTHER] (18:01)
[2022-05-16] MEDS ORDERED: DOXY100C3 (18:01)
[2022-05-16] MEDS ORDERED: MUSCLE (18:01)
== END 2022-05-16 20:01 | disposition left against medical advice (07) ==
LOC: M ED 17:52
DX: Z53.21 Procedure and treatment not carried out due to patient leaving prior to being seen by health care provider (principal)

== ENCOUNTER → 2022-05-27 | Outpatient (CLI) | payer OTHER ==
[~2022-05-27] MED LIST changes: +DOXY100C3; +MUSCLE; +[UNRECOGNIZED DRUG - OTHER]
== END ==
LOC: M WHC 13:35
PROVIDERS: ATTEND Physician Assistant Medical
DX: N63.21 Unspecified lump in the left breast, upper outer quadrant (principal)

== ENCOUNTER → 2022-07-24 | Outpatient (CLI) | payer OTHER ==
[2022-07-24 11:02] LABS: BASO % 0.5 % (0.0-1.0); EOS # 0.1 10^3/uL (0.0-0.5); HEMATOCRIT 44.9 % (36.0-47.0); HEMOGLOBIN 15.3 g/dl (12.0-15.5); LYMPH # 2.1 10^3/uL (1.5-5.0); LYMPH % 34.5 % (24.0-44.0); MEAN CORPUSCULAR HEMOGLOBIN 32.2 pg (27.0-33.0); MEAN CORPUSCULAR HGB CONC 34.1 g/dl (32.0-36.5); MEAN CORPUSCULAR VOLUME 94.5 fl (80.0-96.0); MONO # 0.4 10^3/uL (0.0-0.8); MONO % 6.4 % (2.0-8.0); NEUTROPHILS # 3.5 10^3/uL (1.5-8.5); NEUTROPHILS % 57.3 % (36.0-66.0); PLATELET COUNT, AUTOMATED 249 10^3/uL (150-450); RED BLOOD COUNT 4.75 10^6/uL (4.00-5.40); WHITE BLOOD COUNT 6.1 10^3/uL (4.0-10.0)
[2022-07-24 11:25] LABS: LIPASE 46 U/L (12-53)
[2022-07-24 11:27] LABS: ALBUMIN 3.9 G/DL (3.2-5.2); ALKALINE PHOSPHATASE 66 U/L (46-116); ALT/SGPT 16 U/L (7.0-40); AST/SGOT 19 U/L (<34); BILIRUBIN,TOTAL 0.4 MG/DL (0.3-1.2); BLOOD UREA NITROGEN 11 MG/DL (9-23); CALCIUM LEVEL 9.1 MG/DL (8.5-10.1); CARBON DIOXIDE LEVEL 26 MMOL/L (20-31); CHLORIDE LEVEL 106 MMOL/L (98-107); CHOLESTEROL LEVEL 129 MG/DL (<200); CHOLESTEROL RISK RATIO 2.72 (<5); CREATININE FOR GFR 0.77 MG/DL (0.55-1.30); GLOMERULAR FILTRATION RATE > 60.0 (>60); GLUCOSE, FASTING 48 MG/DL (60-100); HDL CHOLESTEROL 47.4 MG/DL (>40); LDL CHOLESTEROL 71.6 MG/DL (<100); NON-HDL-C 81.6 MG/DL; POTASSIUM SERUM 3.9 MMOL/L (3.5-5.1); SODIUM LEVEL 140 MMOL/L (136-145); TOTAL PROTEIN 6.6 G/DL (5.7-8.2); TRIGLYCERIDES LEVEL 50 MG/DL (<150)
[2022-07-24 11:28] LABS: FREE T4 1.11 NG/DL (0.89-1.76)
[2022-07-24 11:29] LABS: THYROID STIMULATING HORMONE 1.116 uIU/ML (0.55-4.78)
[2022-07-24 11:31] LABS: HEMOGLOBIN A1c 5.2 % (4.0-6.0)
== END ==
LOC: M PLALAB 08:09
PROVIDERS: ATTEND Nurse Practitioner Family
DX: M54.50 Low back pain, unspecified (principal); R10.30 Lower abdominal pain, unspecified; Z13.1 Encounter for screening for diabetes mellitus; Z13.220 Encounter for screening for lipoid disorders; R63.5 Abnormal weight gain

== ENCOUNTER → 2022-07-25 | Outpatient (CLI) | payer OTHER | LOC: M PLAIMG 13:16 | PROVIDERS: ATTEND Nurse Practitioner Family | DX: M43.06 Spondylolysis, lumbar region (principal) ==

== ENCOUNTER → 2022-08-15 | Outpatient (CLI) | payer OTHER | LOC: M WHC 07:06 | PROVIDERS: ATTEND Nurse Practitioner Family | DX: R10.30 Lower abdominal pain, unspecified (principal); Z97.5 Presence of (intrauterine) contraceptive device ==

== ENCOUNTER → 2022-09-03 | Outpatient (CLI) | payer OTHER ==
[~2022-09-03] MED LIST changes: +GASTROGRAFIN SOLUTION 30ML ONE; +ISOVUE-300 61% 100ML VIAL ONE
== END ==
LOC: M PLAIMG 11:57
PROVIDERS: ATTEND Nurse Practitioner Family
DX: R10.9 Unspecified abdominal pain (principal)
CPT/HCPCS: 74160; Q9963; Q9967

== ENCOUNTER 2023-03-27 09:38 | Emergency (ER) | payer OTHER ==
[~2023-03-27] VITALS: Ht 154.9 cm; Wt 76.3 kg
[~2023-03-27 09:38] MED LIST changes: -GASTROGRAFIN SOLUTION 30ML ONE; -ISOVUE-300 61% 100ML VIAL ONE
[2023-03-27 09:39] VITALS: BP 132/62; TEMP 97.3; O2SAT 97
[2023-03-27] MEDS ORDERED: MELO7.5T35 (09:55)
[2023-03-27] MEDS ORDERED: KETOROLAC 60MG 2ML VIAL IM ONE (11:10)
[2023-03-27] MEDS ORDERED: MUPI2OI TOP (11:13)
== END 2023-03-27 11:36 | disposition home or self-care (01) ==
LOC: M ED 09:38
DX: S39.011A Strain of muscle, fascia and tendon of abdomen, initial encounter (principal); J34.89 Other specified disorders of nose and nasal sinuses; J45.909 Unspecified asthma, uncomplicated; K21.9 Gastro-esophageal reflux disease without esophagitis; F41.9 Anxiety disorder, unspecified; F12.10 Cannabis abuse, uncomplicated; F17.200 Nicotine dependence, unspecified, uncomplicated; Z79.52 Long term (current) use of systemic steroids; Z79.899 Other long term (current) drug therapy; Y92.009 Unspecified place in unspecified non-institutional (private) residence as the place of occurrence of the external cause; Y93.89 Activity, other specified; Y99.9 Unspecified external cause status; Z88.2 Allergy status to sulfonamides
CPT/HCPCS: 96372; 99282; J1885

== ENCOUNTER 2023-10-23 21:58 | Emergency (ER) | payer OTHER ==
[~2023-10-23] VITALS: Ht 154.9 cm; Wt 72.7 kg
[~2023-10-23 21:58] MED LIST changes: +DOXY-323 PO; +DOXY-440 PO; -DOXY-443 PO; -DOXY-444 PO; +MELO7.5T35; +MUPI2OI TOP
[2023-10-24] MEDS: LIDOCAINE 1% MDV 20ML VIAL SC ONE (00:20)
[2023-10-24] MEDS: CEPHALEXIN 500 MG CAP PO ONE (00:30)
[2023-10-24] MEDS ORDERED: CEPH500C PO (01:19)
[2023-10-24 01:47] VITALS: BP 133/76; TEMP 97.3; O2SAT 97
== END 2023-10-24 01:58 | disposition home or self-care (01) ==
LOC: M ED 21:58
DX: S90.852A Superficial foreign body, left foot, initial encounter (principal); J45.909 Unspecified asthma, uncomplicated; F17.200 Nicotine dependence, unspecified, uncomplicated; F12.10 Cannabis abuse, uncomplicated; Y92.009 Unspecified place in unspecified non-institutional (private) residence as the place of occurrence of the external cause; Y93.89 Activity, other specified; Y99.9 Unspecified external cause status; Z88.2 Allergy status to sulfonamides; Z79.52 Long term (current) use of systemic steroids; Z79.899 Other long term (current) drug therapy; Z79.2 Long term (current) use of antibiotics

== ENCOUNTER 2023-11-13 11:20 | Emergency (ER) | payer OTHER ==
[~2023-11-13] VITALS: Ht 154.9 cm; Wt 72.1 kg
[~2023-11-13 11:20] MED LIST changes: +CEPH500C PO
[2023-11-13] MEDS ORDERED: PRED20TA (11:52)
[2023-11-13] MEDS ORDERED: CEFU1TAB22 (11:52)
[2023-11-13] MEDS: IPRATROPIUM 0.5MG/ALBUTEROL 2.5MG INH SOL UD 3ML (DUONEB) NEB ONE (14:01)
[2023-11-13] MEDS: ALBUTEROL SULFATE 2.5MG/0.5ML INH NEB SOLN INH ONE (14:01)
[2023-11-13] MEDS ORDERED: PRED20TA PO (15:07)
[2023-11-13 15:14] VITALS: BP 144/74; TEMP 97.7; O2SAT 96
== END 2023-11-13 15:14 | disposition home or self-care (01) ==
LOC: M ED 11:20
DX: J44.1 Chronic obstructive pulmonary disease with (acute) exacerbation (principal); B34.8 Other viral infections of unspecified site; F17.200 Nicotine dependence, unspecified, uncomplicated; F12.10 Cannabis abuse, uncomplicated; Z88.2 Allergy status to sulfonamides; Z79.52 Long term (current) use of systemic steroids; Z79.899 Other long term (current) drug therapy

== ENCOUNTER 2024-03-24 09:26 | Emergency (ER) | payer OTHER ==
[~2024-03-24] VITALS: Ht 154.9 cm; Wt 75.8 kg
[~2024-03-24 09:26] MED LIST changes: +CEFU1TAB22; -DOXY-323 PO; +DOXY-441 PO; +PRED20TA
[2024-03-24] MEDS ORDERED: EXCETAB32 PO (09:48)
[2024-03-24] MEDS ORDERED: ONDA-282 PO (09:48)
[2024-03-24] MEDS ORDERED: MIREIUD (09:50)
[2024-03-24 11:33] VITALS: BP 137/86; TEMP 99.6; O2SAT 94
[2024-03-24] MEDS ORDERED: OSEL75CA PO (11:58)
== END 2024-03-24 12:12 | disposition home or self-care (01) ==
LOC: M ED 09:26
DX: J09.X2 Influenza due to identified novel influenza A virus with other respiratory manifestations (principal); G56.00 Carpal tunnel syndrome, unspecified upper limb; K21.9 Gastro-esophageal reflux disease without esophagitis; J45.909 Unspecified asthma, uncomplicated; F17.200 Nicotine dependence, unspecified, uncomplicated; Z88.2 Allergy status to sulfonamides; Z79.52 Long term (current) use of systemic steroids; Z79.82 Long term (current) use of aspirin; Z79.899 Other long term (current) drug therapy